=== PATIENT | female | born 1945 | race Caucasian/White ===

== ENCOUNTER 2016-11-22 15:34 | Emergency (ER) | payer MEDICARE, BC ==
[2016-11-22] MEDS ORDERED: Hydromorphone 1 mg/ml Ampule IV ONE ×3 (15:48→19:03)
[2016-11-22] MEDS ORDERED: BENADRYL 50 MG/ML IV ONE ×2 (15:48→16:38)
[2016-11-22] MEDS ORDERED: GI COCKTAIL 60ML (Belladonn/Phenobarb/Lidoc PO ONE (15:49)
[2016-11-22] MEDS ORDERED: BENADRYL 50 MG/ML ONE ×2 (15:53→16:39)
[2016-11-22] MEDS ORDERED: Hydromorphone 1 mg/ml Ampule ONE ×3 (15:53→18:57)
[2016-11-22] MEDS ORDERED: XYLOCAINE HCl Viscous ONE (15:54)
[2016-11-22] MEDS ORDERED: Sodium Chloride 0.9% 1000 ML 1,000 ML ONE (15:55)
[2016-11-22] MEDS ORDERED: Pepcid 20 MG VIAL IV ONE ×2 (15:55→15:56)
[2016-11-22] MEDS ORDERED: MAALOX ES 30 ML UNIT DOSE ONE (15:55)
--- NOTE | 2016-11-22 15:55 | ERPHSYRPT ---
- History of Present Illness Time Seen by Provider: 11/22/16 15:35 Source: patient, family (daughter) Patient Subjective Stated Complaint: PT STATES SHE RECENTLY STARTED RADIATION STATED THAT SHE WAS OUT PULLING WEEDS WHEN SHE BEGAN HAVING SOME. EPIGASTRIC PAIN STATES THAT THE DR TOLD HER SHE WOULD HAVE SOME PAIN FROM [facility] "BUT I DIDN'T THINK. IT WOULD HURT THIS BAD" DENIES EVIE. Triage Nursing Assessment: PT ALERT WARM AND DRY RESP EASY NON LABORED ABDOMEN SOFT NON TENDER ON PALPATION Physician History: CC: chest pain, pain with swallowing Hx: 71 y/o patient of CARRILL[facility] Shaikh and Dr Mcclendon rad onc. She has stage 3 lung CA on intensive XRT and chemotherapy. She completed 5 XRT treatments today. She takes norco for pain. She now has pain that is severe, worse with swallowing. Can not even eat or drink to the pain. No fever or chills. No cough or shortness of breath. No real abd pain. She has hx of heart disease and stenting. Severity: severe Allergies/Adverse Reactions: prochlorperazine [From Compazine] Allergy (Verified 11/22/16 15:37) CONTRAST DYE Allergy (Uncoded 11/22/16 15:55) Home Medications: Amitriptyline HCl 50 mg PO 11/22/16 [History] Aspirin 325 mg PO 11/22/16 [History] Carvedilol 6.25 mg [Coreg 6.25 MG] 6.25 mg PO BID 11/22/16 [History] Clopidogrel Bisulfate [Plavix] 75 mg PO DAILY 11/22/16 [History] Donepezil HCl 10 mg PO DAILY 11/22/16 [History] Insulin Glargine [Lantus Insulin] 11/22/16 [History] Levothyroxine Sodium 80 mcg 11/22/16 [History] Metformin HCl 500 mg PO TID 11/22/16 [History] Ideal-3 Fatty Acids/Fish Oil [Fish Oil 1,000 mg Capsule] 11/22/16 [History ] Paroxetine HCl 20 mg PO 11/22/16 [History] Pravastatin Sodium 40 mg PO DAILY 11/22/16 [History] Zolpidem Tartrate 10 mg PO 11/22/16 [History] Hx Tetanus, Diphtheria Vaccination/Date Given: No Hx Influenza Vaccination/Date Given: No Hx Pneumococcal Vaccination/Date Given: No Immunizations Up to Date: Yes - Review of Systems Constitutional: No Fever, No Chills Eyes: No Symptoms Ears, Nose, & Throat: No Symptoms Respiratory: No Cough, No Dyspnea Cardiac: Chest Pain Abdominal/Gastrointestinal: No Abdominal Pain, No Nausea, No Vomiting, No Diarrhea Genitourinary Symptoms: No Symptoms Musculoskeletal: No Symptoms Skin: No Symptoms All Other Systems: Reviewed and Negative - Past Medical History Pertinent Past Medical History: Yes Other Medical History: DIABETIC,HTN,HIGH CHOLESTEROL,VT,STAGE 3 LUNG CANCER - Past Surgical History Past Surgical History: Yes Other Surgical History: PORT PLACEMENT - Social History Smoking Status: Former smoker Exposure to second hand smoke: No Drug Use: none Patient Lives Alone: No - Female History Hx Last Menstrual Period: N/A - Nursing Vital Signs Nursing Vital Signs: Initial Vital Signs Temperature 98.7 F Temperature Source Oral Pulse Rate 100 Respiratory Rate 20 Blood Pressure [] 140/67 Pain Intensity 8 - Physical Exam General Appearance: alert Eye Exam: PERRL/EOMI Ears, Nose, Throat Exam: normal ENT inspection, moist mucous membranes Neck Exam: normal inspection, non-tender, supple Respiratory Exam: normal breath sounds, lungs clear Cardiovascular Exam: regular rate/rhythm Gastrointestinal/Abdomen Exam: soft, No tenderness, No distention, No mass, No guarding Back Exam: normal inspection Extremity Exam: normal inspection, normal range of motion Neurologic Exam: alert, oriented x 3, cooperative, sensation nml, No motor deficits Skin Exam: warm, dry, No rash SpO2 Interpretation: normal SpO2: 96 Oxygen Delivery: Room Air - Course Nursing assessment & vital signs reviewed: Yes EKG Interpreted by Me: RATE (86), Sinus Rhythm, NORMAL AXIS, NORMAL INTERVALS ( QTc 428), NORMAL QRS, NORMAL ST-T - Radiology Exams cxr X-ray Interpretation: Reviewed by me (ectactic aorta, no acute) Ordered Tests: Active Orders 24 hr Category Date Time Status EKG-ER Only STAT Care 11/22/16 15:48 Active IV Insertion STAT Care 11/22/16 15:48 Active CHEST 2 VIEWS (PA AND LAT) Stat Exams 11/22/16 15:48 Taken CBC W DIFF Stat Lab 11/22/16 15:45 Completed CMP Stat Lab 11/22/16 15:45 Completed LIPASE Stat Lab 11/22/16 15:45 Completed TROPONIN Stat Lab 11/22/16 15:45 Completed Medication Summary Generic Name Dose Route Start Last Admin Trade Name Eden PRN Reason Stop Dose Admin Sodium Chloride 1,000 mls @ 250 mls/hr 11/22/16 16:00 11/22/16 16:03 Sodium Chloride 0.9% 1000 Ml IV 12/22/16 15:59 250 mls/hr .Q4H MATEO Administration Discontinued Medications Generic Name Dose Route Start Last Admin Trade Name Eden PRN Reason Stop Dose Admin Al Hydrox/Mg Hydrox/Simethicone Confirm 11/22/16 15:55 Maalox Es 30 Ml Unit Dose Administered 11/22/16 15:56 Dose 30 ml .ROUTE .STK-MED ONE Belladonna Alkaloids/Phenobarbital 60 ml 11/22/16 15:49 11/22/16 16:02 Gi Cocktail 60ml (Belladonn/Phenobarb/Lidoc* PO 11/22/16 15:50 60 ml STAT ONE Administration Belladonna Alkaloids/Phenobarbital Confirm 11/22/16 15:56 Donnatol Liquid Administered 11/22/16 15:57 Dose 64.8 mg .ROUTE .STK-MED ONE Diphenhydramine HCl 25 mg 11/22/16 15:48 11/22/16 16:02 Benadryl 50 Mg/Ml IV 11/22/16 15:49 25 mg STAT ONE Administration Diphenhydramine HCl Confirm 11/22/16 15:53 Benadryl 50 Mg/Ml Administered 11/22/16 15:54 Dose 50 mg .ROUTE .STK-MED ONE Diphenhydramine HCl 25 mg 11/22/16 16:38 11/22/16 16:44 Benadryl 50 Mg/Ml IV 11/22/16 16:39 25 mg STAT ONE Administration Diphenhydramine HCl Confirm 11/22/16 16:39 Benadryl 50 Mg/Ml Administered 11/22/16 16:40 Dose 50 mg .ROUTE .STK-MED ONE Famotidine 20 mg 11/22/16 15:55 11/22/16 16:03 Pepcid 20 Mg Vial IV 11/22/16 15:56 20 mg STAT ONE Administration Famotidine Confirm 11/22/16 15:56 Pepcid 20 Mg Vial Administered 11/22/16 15:57 Dose 20 mg IV .STK-MED ONE Hydromorphone HCl 1 mg 11/22/16 15:48 11/22/16 16:02 Hydromorphone 1 Mg/Ml Ampule IV 11/22/16 15:49 1 mg STAT ONE Administration Hydromorphone HCl Confirm 11/22/16 15:53 Hydromorphone 1 Mg/Ml Ampule Administered 11/22/16 15:54 Dose 1 mg .ROUTE .STK-MED ONE Hydromorphone HCl 1 mg 11/22/16 16:38 11/22/16 16:44 Hydromorphone 1 Mg/Ml Ampule IV 11/22/16 16:39 1 mg STAT ONE Administration Hydromorphone HCl Confirm 11/22/16 16:39 Hydromorphone 1 Mg/Ml Ampule Administered 11/22/16 16:40 Dose 1 mg .ROUTE .STK-MED ONE Hydromorphone HCl Confirm 11/22/16 18:57 Hydromorphone 1 Mg/Ml Ampule Administered 11/22/16 18:58 Dose 1 mg .ROUTE .STK-MED ONE Hydromorphone HCl 1 mg 11/22/16 19:03 11/22/16 19:04 Hydromorphone 1 Mg/Ml Ampule IV 11/22/16 19:04 1 mg STAT ONE Administration Lidocaine HCl Confirm 11/22/16 15:54 Xylocaine Hcl Viscous * Administered 11/22/16 15:55 Dose 20 ml .ROUTE .STK-MED ONE Lab/Rad Data: Laboratory Result Diagrams 11/22/16 15:45 11/22/16 15:45 Laboratory Results 11/22/16 11/22/16 Range/Units 15:45 15:45 WBC 3.9 L (4.0-10.5) K/mm3 RBC 4.34 (4.1-5.4) M/mm3 Hgb 12.3 (12.0-16.0) gm/dl Hct 37.1 (35-47) % MCV 85.5 (78-100) fl MCH 28.3 (26-32) pg MCHC 33.2 (32-36) g/dl RDW 13.6 (11.5-14.0) % Plt Count 347 (150-450) K/mm3 MPV 9.4 (6-9.5) fl Gran % 57.6 (36.0-66.0) % Lymphocytes % 36.8 (24.0-44.0) % Monocytes % 3.3 (0.0-12.0) % Eosinophils % 1.8 (0.00-5.0) % Basophils % 0.5 (0.0-0.4) % Basophils # 0.02 (0-0.4) Sodium 136 (136-145) mEq/L Potassium 4.6 (3.5-5.1) mEq/L Chloride 101 (98-107) mEq/L Carbon Dioxide 27.9 (21-32) mEq/L Anion Gap 12.1 (5-15) MEQ/L BUN 15 (9-20) mg/dL Creatinine 0.93 (0.55-1.30) mg/dl Estimated GFR > 60 ML/MIN Glucose 149 H (70-110) MG/DL Calcium 8.9 (8.5-10.1) mg/dL Total Bilirubin 0.20 (0.2-1.0) mg/dL AST 11 L (15-37) U/L ALT 36 (12-78) U/L Alkaline Phosphatase 118 H (46-116) U/L Troponin I < 0.017 (0.000-0.056) ng/ml Serum Total Protein 6.5 (6.4-8.2) gm/dL Albumin 3.6 (3.4-5.0) g/dL Lipase 267 (73-393) U/L - Progress Progress Note: 11/22/16 19:[address] Mojica for Dr Mcclendon. He advised okay to try liquid oral pain meds with duragesic patch at home or admit for IVF and pain control and possible feeding tube if unable to swallow. Pt initially wanted to go home but pain has worsened and she has trouble swallowing. Explained to pt and family can not rule out cardiac or aortic cause but this appears to be esophageal. She decided for transfer to [facility] as she sees Kiran Leach, Dr Mcclendon, and Dr Aggarwal. Paged transfer center. 11/22/16 19:[address] Valerio [facility] attending and he accepts transfer to [facility]. Counseled pt/family regarding: lab results, diagnosis, need for follow-up, rad results - Departure Time of Disposition: 19:31 Departure Disposition: Transfer Clinical Impression: post XRT chest pain, Esophagitis, stage 3 lung cancer, Dysphagia, Odynophagia Condition: Fair Critical Care Time: No Referrals: TARIK SHAIKH [Primary Care Provider] -
[2016-11-22] MEDS ORDERED: Donnatol Liquid ONE (15:56)
[2016-11-22 15:59] LABS: BASOPHIL % 0.5 % (0.0-0.4); Eosinophil % 1.8 % (0.00-5.0); Granulocytes % 57.6 % (36.0-66.0); Lymphocytes % 36.8 % (24.0-44.0); Mean Cell Volume 85.5 fl (78-100); Mean Corpuscular Hemoglobin 28.3 pg (26-32); Mean Platelet Volume 9.4 fl (6-9.5); Monocytes % 3.3 % (0.0-12.0); Platelet Count 347 K/mm3 (150-450); Red Blood Count 4.34 M/mm3 (4.1-5.4); Red Cell Distribution Width 13.6 % (11.5-14.0); White Blood Count 3.9 K/mm3 (4.0-10.5)
[2016-11-22] MEDS ORDERED: Sodium Chloride 0.9% 1000 ML 1,000 ML IV SCH (16:00)
[2016-11-22 16:20] LABS: ALBUMIN 3.6 g/dL (3.4-5.0); ALKALINE PHOSPHATASE 118 U/L (46-116); ANION GAP 12.1 MEQ/L (5-15); BLOOD UREA NITROGEN 15 mg/dL (9-20); CHLORIDE 101 mEq/L (98-107); Carbon Dioxide 27.9 mEq/L (21-32); Glucose 149 MG/DL (70-110); LIPASE 267 U/L (73-393); Potassium 4.6 mEq/L (3.5-5.1); SGOT/AST 11 U/L (15-37); SGPT/ALT 36 U/L (12-78); SODIUM 136 mEq/L (136-145); Total Protein 6.5 gm/dL (6.4-8.2)
[2016-11-22 16:23] LABS: TROPONIN < 0.017 ng/ml (0.000-0.056)
--- NOTE | 2016-11-22 20:19 | XRAY ---
Indication: Chest pain. Lung cancer. Comparison: None PA/lateral chest demonstrates 2 cm medial right upper lobe nodule. Elsewhere a few scattered calcified granulomas and right-sided Port-A-Cath. No focal infiltrate, consolidation, or large effusion. Heart is not enlarged. Vascularity normal. Bony thorax intact with mild osteopenia and lower cervical fusion surgery. Impression: Right upper lobe nodule that should be compared to previous outside studies if available. Evidence for old granulomatous disease. Negative for acute pneumonic process or CHF.
[2016-11-22 21:48] VITALS: BP 124/80; PULSE 89; O2SAT 95
== END 2016-11-22 21:25 | disposition short-term general hospital (02) ==
LOC: ED 15:34
DX: R07.89 Other chest pain (principal); Z92.3 Personal history of irradiation; K20.9 Esophagitis, unspecified; C34.90 Malignant neoplasm of unspecified part of unspecified bronchus or lung; R13.10 Dysphagia, unspecified; Z79.899 Other long term (current) drug therapy; Z79.84 Long term (current) use of oral hypoglycemic drugs; Z79.4 Long term (current) use of insulin; E11.9 Type 2 diabetes mellitus without complications; I10 Essential (primary) hypertension; E78.00 Pure hypercholesterolemia, unspecified
CPT/HCPCS: 36000; 36415; 71020; 80053; 83690; 84484; 85025; 93005; 96360; 96361; 96374; 96375; 96376; 99285; J1170; J1200; A9270-GY

== ENCOUNTER 2017-01-18 15:40 | Observation (INO) | payer MEDICARE, BC ==
[2017-01-18] MEDS ORDERED: DUONEB 0.5-3 MG/3 ml Neb IH ONE ×2 (15:56→16:18)
--- NOTE | 2017-01-18 16:03 | ERPHSYRPT ---
- History of Present Illness Time Seen by Provider: 01/18/17 15:51 Source: patient Exam Limitations: no limitations Physician History: 71-year-old white female with history of stage III lung cancer has been undergoing chemotherapy and radiation therapy arrives with complaint of a cough nonproductive lasting 3 days. Patient states she is feels like she is wheezing she feels like she is not improving after albuterol treatments at home. Past medical history includes diabetes, high blood pressure, hypercholesterolemia, myocardial infarction, stage III lung cancer Past surgical history includes port placement Social history patient is a former smoker Timing/Duration: day(s) (3 days) Activities at Onset: none Severity of Dyspnea-Max: moderate Severity of Dyspnea-Current: moderate Possible Cause: occasional episodes Modifying Factors: Improves With: nothing Associated Symptoms: constant, cough, fever (patient states she felt hot several days ago but did not take her temperature), wheezing, No intermittent, No anxiety, No chest pain/discomfort, No edema, No insomnia, No loss of appetite , No lightheadedness, No weakness, No ankle swelling, No chills, No hemoptysis, No calf pain, No dizziness, No heaviness, No heart racing, No muscle spasms feet , No muscle spasms hands, No painful breathing, No productive cough, No sweating , No tightness, No tingling face International travel in last 2 weeks: No Allergies/Adverse Reactions: prochlorperazine [From Compazine] Allergy (Verified 11/22/16 15:37) CONTRAST DYE Allergy (Uncoded 11/22/16 15:55) Home Medications: Amitriptyline HCl 50 mg PO 11/22/16 [History] Aspirin 325 mg PO 11/22/16 [History] Carvedilol 6.25 mg [Coreg 6.25 MG] 6.25 mg PO BID 11/22/16 [History] Clopidogrel Bisulfate [Plavix] 75 mg PO DAILY 11/22/16 [History] Donepezil HCl 10 mg PO DAILY 11/22/16 [History] Insulin Glargine [Lantus Insulin] 11/22/16 [History] Levothyroxine Sodium 80 mcg 11/22/16 [History] Metformin HCl 500 mg PO TID 11/22/16 [History] [place]iergate-3 Fatty Acids/Fish Oil [Fish Oil 1,000 mg Capsule] 11/22/16 [History ] Paroxetine HCl 20 mg PO 11/22/16 [History] Pravastatin Sodium 40 mg PO DAILY 11/22/16 [History] Zolpidem Tartrate 10 mg PO 11/22/16 [History] Hx Tetanus, Diphtheria Vaccination/Date Given: No Hx Influenza Vaccination/Date Given: No Hx Pneumococcal Vaccination/Date Given: No - Review of Systems Constitutional: Fever (felt hot several days ago did not take her temperature), No Chills, No Fatigue, No Lethargy, No Malaise, No Night Sweats, No Weakness, No Weight Loss Eyes: No Symptoms Ears, Nose, & Throat: No Symptoms, No Ear Pain, No Ear Discharge, No Hearing Changes, No Tinnitus, No Nose Pain, No Nose Congestion, No Nose Discharge, No Sinus Drainage, No Epistaxis, No Mouth Pain, No Mouth Swelling, No Loose Teeth, No Throat Pain, No Throat Swelling, No Hoarse, No Painful Swallowing, No Snoring , No Stridor Respiratory: Cough, Dyspnea, Wheezing, No Cyanosis, No Dyspnea on Exertion (MCNAMARA) , No Stridor Cardiac: No Chest Pain, No Edema, No Syncope Abdominal/Gastrointestinal: No Abdominal Pain, No Nausea, No Vomiting, No Diarrhea Genitourinary Symptoms: No Dysuria Musculoskeletal: No Back Pain, No Neck Pain Skin: No Rash Neurological: No Dizziness, No Focal Weakness, No Sensory Changes Psychological: No Symptoms Endocrine: No Symptoms All Other Systems: Reviewed and Negative - Past Medical History Pertinent Past Medical History: Yes Other Medical History: DIABETIC,HTN,HIGH CHOLESTEROL,OH,STAGE 3 LUNG CANCER - Past Surgical History Past Surgical History: Yes Other Surgical History: PORT PLACEMENT - Social History Smoking Status: Former smoker Exposure to second hand smoke: No Drug Use: none Patient Lives Alone: No - Nursing Vital Signs Nursing Vital Signs: Initial Vital Signs Temperature 98.1 F 01/18/17 15:41 Pulse Rate 91 H 01/18/17 15:41 Respiratory Rate 18 01/18/17 15:41 Blood Pressure 102/67 01/18/17 15:41 O2 Sat by Pulse Oximetry 97 01/18/17 15:41 Pain Scale Pain Intensity 8 - Physical Exam General Appearance: mild distress Eye Exam: PERRL/EOMI, eyes nml inspection, No scleral icterus, No pale conjunctivae, No photophobia, No post op pupil defect (L), No post op pupil defect (R), No EOM palsy/anisocoria Ears, Nose, Throat Exam: hearing grossly normal, normal ENT inspection, normal pharynx, No abnormal TM (R), No abnormal TM (L), No sinus pain/drainage, No hearing decreased, No nasal congestion, No pharyngeal erythema, No tonsillar swelling Neck Exam: normal inspection, supple Respiratory Exam: rhonchi (bilateral rhonchi), wheezing (bilateral wheezing) Cardiovascular/Chest Exam: normal heart sounds, regular rate/rhythm Abdominal/Gastrointestinal Exam: soft, No tenderness, No distention, No mass Extremity Exam: non-tender, normal range of motion, normal inspection, no calf tenderness, no pedal edema Peripheral Pulses Exam: dorsalis-pedis (R): 2+, dorsalis-pedis (L): 2+ Neurologic Exam: alert, oriented x 3, cooperative, 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 II-XII nml as tested, sensation nml, No motor deficits Skin Exam: normal color, warm, No dry SpO2 Interpretation: normal (96%) - Course Nursing assessment & vital signs reviewed: Yes EKG Interpreted by Me: RATE (87 bpm), Sinus Rhythm, NORMAL AXIS, Other (EKG, sinus rhythm 87 bpm normal axis no T wave changes noted essentially normal ekg) Ordered Tests: Active Orders 24 hr Category Date Time Status Animal Pathologist STAT Care 01/18/17 15:57 Active EKG-ER Only STAT Care 01/18/17 15:56 Active IV Insertion STAT Care 01/18/17 15:56 Active CHEST 1 VIEW (PORTABLE) Stat Exams 01/18/17 15:57 Taken BLOOD CULTURE Stat Lab 01/18/17 16:10 Received CBC W DIFF Stat Lab 01/18/17 16:05 Completed CMP Stat Lab 01/18/17 16:05 Completed CULTURE,SPUTUM Stat Lab 01/18/17 15:57 Uncollected Manual Differential NC Stat Lab 01/18/17 16:05 Completed NT PRO BNP Stat Lab 01/18/17 16:05 Completed VENOUS BLOOD GAS Stat Lab 01/18/17 15:56 Completed Respiratory Nebulizer STAT RT 01/18/17 15:58 Completed Medication Summary Discontinued Medications Generic Name Dose Route Start Last Admin Trade Name Freq PRN Reason Stop Dose Admin Albuterol/Ipratropium 3 ml 01/18/17 15:56 01/18/17 16:20 Duoneb 0.5-3 Mg/3 Ml Neb IH 01/18/17 15:57 3 ml STAT ONE Administration Albuterol/Ipratropium Confirm 01/18/17 16:18 Duoneb 0.5-3 Mg/3 Ml Neb Administered 01/18/17 16:19 Dose 3 ml IH .STK-MED ONE Ceftriaxone Sodium/Dextrose 1 g in 50 mls @ 100 mls/hr 01/18/17 17:01 17:22 Rocephin 1 Gm-D5w 50 Ml Bag IV 01/18/17 17:30 100 mls/hr STAT STA Administration Ceftriaxone Sodium/Dextrose Confirm 01/18/17 17:20 Rocephin 1 Gm-D5w 50 Ml Bag Administered 01/18/17 17:21 Dose 1 g in 50 mls @ ud IV .STK-MED ONE Methylprednisolone Sodium Succinate 125 mg 01/18/17 17:00 01/18/17 17:22 Solu-Medrol 125 Mg IV 01/18/17 17:01 125 mg STAT ONE Administration Methylprednisolone Sodium Succinate Confirm 01/18/17 17:20 Solu-Medrol 125 Mg Administered 01/18/17 17:21 Dose 125 mg .ROUTE .STK-MED ONE Lab/Rad Data: Laboratory Result Diagrams 01/18/17 16:05 01/18/17 16:05 Laboratory Results 01/18/17 01/18/17 01/18/17 Range/Units 16:05 16:05 15:56 WBC 4.1 (4.0-10.5) K/mm3 RBC 2.72 L (4.1-5.4) M/mm3 Hgb 8.1 L (12.0-16.0) gm/dl Hct 25.6 L (35-47) % MCV 94.1 (78-100) fl MCH 29.7 (26-32) pg MCHC 31.6 L (32-36) g/dl RDW 21.3 H (11.5-14.0) % Plt Count 169 (150-450) K/mm3 MPV 8.4 (6-9.5) fl Segmented Neutrophils 60 (36.0-66.0) % Band Neutrophils 11 H (0.0-2.0) % Lymphocytes (Manual) 27 (24-44) % Monocytes (Manual) 2 (0.0-12.0) % Differential Comment NORMAL Platelet Estimate NORMAL (NORMAL) VBG pH 7.39 (7.32-7.42) VBG pCO2 at Pat Temp 44 (42-55) mm/Hg VBG pO2 at Pat Temp 29 (25-40) mm/Hg VBG HCO3 26.6 (22-28) meq/L VBG O2 Sat (Judy) 54.0 L (95-100) VBG Base Excess 1.4 (-2.0-2.0) VBG Hemoglobin 8.6 VBG Carboxyhemoglobin 2.0 (0.0-6.9) % T HGB POC Potassium 4.4 (3.5-5.1) Sodium 142 (136-145) mEq/L Potassium 4.2 (3.5-5.1) mEq/L Chloride 106 (98-107) mEq/L Carbon Dioxide 23.5 (21-32) mEq/L Anion Gap 16.2 H (5-15) MEQ/L BUN 9 (9-20) mg/dL Creatinine 1.00 (0.55-1.30) mg/dl Estimated GFR 58 ML/MIN Glucose 179 H (70-110) MG/DL Calcium 8.6 (8.5-10.1) mg/dL Total Bilirubin 0.30 (0.2-1.0) mg/dL AST 13 L (15-37) U/L ALT 19 (12-78) U/L Alkaline Phosphatase 131 H (46-116) U/L NT-Pro-B Natriuret Pep 186 H (0-125) pg/ml Serum Total Protein 5.7 L (6.4-8.2) gm/dL Albumin 3.2 L (3.4-5.0) g/dL - Progress Progress: improved Air Movement: fair Progress Note: 01/18/17 18:01 71-year-old white female with history of stage III lung cancer arrives with complaint of a cough congestion wheezing symptoms for 3 days. Patient with bilateral wheezing patient has what appears to be a infiltrate in the left lower lung. Patient states she [facility] not [facility] to [facility] she wants to stay here patient has been given DuoNeb treatment albuterol Rocephin. Will discuss the case with Dr. León who is project control manager for hospitalist in this hospital. 01/18/17 18:27 Patient feeling somewhat better however a few wheezes after DuoNeb and Solu- Medrol. Patient has been cultured up. Patient's BNP is mildly elevated. Chest x-ray shows a left lower lobe infiltrate. Patient states she does not want to be transferred to [facility] where her family doctor is but would rather stay here. Case is discussed with Dr. León Will admit for pneumonia and bronchospasm - Departure Time of Disposition: 18:29 Departure Disposition: Observation Clinical Impression: Bronchospasm Pneumonia Qualifiers: Pneumonia type: due to unspecified organism Laterality: left Lung location: lower lobe of lung Qualified Code(s): J18.1 - Lobar pneumonia, unspecified organism Condition: Fair Critical Care Time: No
[2017-01-18 16:10] LABS: VBG BASE EXCESS 1.4 (-2.0-2.0); VBG HCO3- 26.6 meq/L (22-28); VBG HEMOGLOBIN 8.6; VBG POTASSIUM 4.4 (3.5-5.1); VBG pH 7.39 (7.32-7.42)
[2017-01-18 16:17] LABS: Mean Cell Volume 94.1 fl (78-100); Mean Platelet Volume 8.4 fl (6-9.5); Platelet Count 169 K/mm3 (150-450); Red Blood Count 2.72 M/mm3 (4.1-5.4); Red Cell Distribution Width 21.3 % (11.5-14.0); White Blood Count 4.1 K/mm3 (4.0-10.5)
[2017-01-18 16:24] LABS: Mean Corpuscular Hemoglobin 29.7 pg (26-32)
[2017-01-18 16:43] LABS: ALBUMIN 3.2 g/dL (3.4-5.0); ANION GAP 16.2 MEQ/L (5-15); BILIRUBIN,TOTAL 0.3 mg/dL (0.2-1.0); Carbon Dioxide 23.5 mEq/L (21-32); Potassium 4.2 mEq/L (3.5-5.1); Total Protein 5.7 gm/dL (6.4-8.2)
[2017-01-18 16:53] LABS: BAND 11 % (0.0-2.0); Platelet Estimate NORMAL (NORMAL); Total Cells Counted 100
[2017-01-18] MEDS ORDERED: solu-MEDROL 125 MG IV ONE (17:00)
[2017-01-18] MEDS ORDERED: ROCEPHIN 1 Gm-D5w 50 ml Bag** 1 G/50 ML IVPB IV STA (17:01)
[2017-01-18] MEDS ORDERED: solu-MEDROL 125 MG ONE (17:20)
[2017-01-18] MEDS ORDERED: ROCEPHIN 1 Gm-D5w 50 ml Bag** 1 G/50 ML IVPB IV ONE (17:20)
[2017-01-18] MEDS ORDERED: DUONEB 0.5-3 MG/3 ml Neb IH PRN (19:03)
--- NOTE | 2017-01-18 20:02 | XRAY ---
Indication: Fever and cough. Comparison: November 22, 2016. Portable chest demonstrates new right costophrenic angle and lesser degree left base infiltrates/atelectasis. Again scattered calcified granulomas. Heart is not enlarged. Stable right-sided Port-A-Cath and lower cervical fusion surgery. Bony thorax intact. Impression: New bibasilar infiltrates/atelectasis. Correlate clinically.
[2017-01-18] MEDS: solu-MEDROL 125 MG IV SCH (22:14)
[2017-01-18] MEDS: Sodium Chloride 0.9% 1000 ML 1,000 ML IV SCH (22:44)
[2017-01-19] MEDS ORDERED: Ambien 10 MG ONE (00:01)
[2017-01-19] MEDS ORDERED: NORCO 7.5/325 MG TAB ONE (00:14)
[2017-01-19] MEDS ORDERED: NORCO 7.5/325 MG TAB PO PRN (00:20)
[2017-01-19] MEDS ORDERED: Ambien 10 MG PO PRN (00:20)
[2017-01-19] MEDS ORDERED: ZOFRAN ODT 4 MG PO PRN (00:21)
[2017-01-19] MEDS ORDERED: Ativan 1 MG PO PRN (00:22)
[2017-01-19] MEDS: solu-MEDROL 125 MG IV SCH ×2 (00:33→06:28)
[2017-01-19 06:31] LABS: Mean Cell Volume 92.8 fl (78-100); Mean Corpuscular Hemoglobin 29.7 pg (26-32); Mean Platelet Volume 9.2 fl (6-9.5); Platelet Count 189 K/mm3 (150-450); Red Blood Count 2.76 M/mm3 (4.1-5.4); Red Cell Distribution Width 20.8 % (11.5-14.0); White Blood Count 4.8 K/mm3 (4.0-10.5)
[2017-01-19] MEDS: NORCO 7.5/325 MG TAB PO PRN ×2 (06:47→13:45)
[2017-01-19 07:02] LABS: ALBUMIN 3.2 g/dL (3.4-5.0); ALKALINE PHOSPHATASE 127 U/L (46-116); ANION GAP 13.5 MEQ/L (5-15); BLOOD UREA NITROGEN 9 mg/dL (9-20); CHLORIDE 106 mEq/L (98-107); Carbon Dioxide 25.8 mEq/L (21-32); Glucose 276 MG/DL (70-110); Potassium 4.2 mEq/L (3.5-5.1); SGOT/AST 11 U/L (15-37); SGPT/ALT 20 U/L (12-78); SODIUM 141 mEq/L (136-145); Total Protein 6.1 gm/dL (6.4-8.2)
[2017-01-19] MEDS: DUONEB 0.5-3 MG/3 ml Neb IH SCH ×3 (07:50→15:12)
[2017-01-19] MEDS: NovoLOG Insulin SQ PRN ×2 (08:08→12:04)
[2017-01-19 08:18] LABS: Total Cells Counted 100
[2017-01-19 08:19] LABS: Platelet Estimate NORMAL (NORMAL)
--- NOTE | 2017-01-19 08:32 | XRAY ---
Indication: Follow-up pneumonia. Comparison: One day earlier. PA/lateral chest demonstrates clearing of the previous bibasilar infiltrates/atelectasis with the lungs now clear. Heart within normal limits with again right-sided Port-A-Cath. No new/acute findings.
[2017-01-19] MEDS ORDERED: Zithromax 500 MG/ 250 ML NaCl Premix 500 MG/250 ML IVPB IV SCH ×2 (10:00→22:00)
[2017-01-19] MEDS ORDERED: ROCEPHIN 1 Gm-D5w 50 ml Bag** 1 G/50 ML IVPB IV SCH (10:00)
[2017-01-19] MEDS: Sodium Chloride 0.9% 1000 ML 1,000 ML IV SCH (10:44)
[2017-01-19 11:58] VITALS: BP 138/75
[2017-01-19] MEDS ORDERED: solu-MEDROL 125 MG IV SCH (12:00)
--- NOTE | 2017-01-19 13:02 | PCM.HP ---
History of Present Illness - Chief Complaint Chief Complaint: c/o shortness of breath for 2-3 days History of Present Illness: is a 71-year-old white female with history of stage III lung cancer has been undergoing chemotherapy and radiation therapy arrives with complaint of a cough nonproductive lasting 3 days. Patient states she is feels like she is wheezing she feels like she is not improving after albuterol treatments at home. Past medical history includes diabetes, high blood pressure, hypercholesterolemia, myocardial infarction, stage III lung cancer Past surgical history includes port placement Social history patient is a former smoker Timing/Duration: day(s) (3 days) Activities at Onset: none Severity of Dyspnea-Max: moderate Severity of Dyspnea-Current: moderate Possible Cause: occasional episodes - Review of Systems Constitutional: Fever, No Chills Eyes: No Symptoms Ears, Nose, & Throat: No Symptoms Respiratory: Cough, Short Of Breath, Wheezing Cardiac: No Chest Pain, No Edema, No Syncope Abdominal/Gastrointestinal: No Abdominal Pain, No Nausea, No Vomiting, No Diarrhea Genitourinary Symptoms: No Dysuria Musculoskeletal: No Back Pain, No Neck Pain Skin: No Rash Neurological: No Dizziness, No Focal Weakness, No Sensory Changes Psychological: No Symptoms Endocrine: No Symptoms Hematologic/Lymphatic: No Symptoms Immunological/Allergic: No Symptoms Medications & Allergies Home Medications: Home Medication List Amitriptyline HCl 50 mg PO HS 11/22/16 [History Confirmed 01/19/17] Aspirin 325 mg PO DAILY 11/22/16 [History Confirmed 01/19/17] Clopidogrel Bisulfate [Plavix] 75 mg PO DAILY 11/22/16 [History Confirmed ] Donepezil HCl 10 mg PO DAILY 11/22/16 [History Confirmed 01/19/17] Levothyroxine Sodium 25 mcg PO DAILY 11/22/16 [History Confirmed 01/19/17] Metformin HCl 500 mg PO BID 11/22/16 [History Confirmed 01/18/17] Paroxetine HCl 30 mg PO DAILY 11/22/16 [History Confirmed 01/19/17] Pravastatin Sodium 80 mg PO DAILY 11/22/16 [History Confirmed 01/19/17] Zolpidem Tartrate 10 mg PO HS 11/22/16 [History Confirmed 01/18/17] Carvedilol 12.5 mg [Coreg 12.5 mg] 12.5 mg PO BID 01/18/17 [History Confirmed 01/18/17] Clonazepam 0.5 mg [Klonopin 0.5 MG] 0.5 mg PO BID 01/18/17 [History Confirmed 01/19/17] Dexamethasone 4 mg PO UD 01/18/17 [History Confirmed 01/19/17] Insulin Glargine,Hum.rec.anlog [Basaglar Kwikpen U-100] 23 unit SQ HS 01/18/17 [ History Confirmed 01/19/17] Insulin Lispro [Humalog Kwikpen] 0 unit SQ BID PRN MDD 20 01/18/17 [History Confirmed 01/19/17] Levocetirizine Dihydrochloride [Xyzal] 5 mg PO HS 01/18/17 [History Confirmed ] Omeprazole 20 MG [Prilosec 20 mg] 20 mg PO DAILY 01/18/17 [History Confirmed 02/24] Ondansetron [Ondansetron Odt] 4 mg PO Q6HPRN PRN 01/18/17 [History Confirmed 03/27] Promethazine HCl 25 mg [Phenergan 25 mg] 25 mg PO Q8H PRN PRN 01/18/17 [ History Confirmed 01/18/17] Albuterol 2.5 mg/3 ml Neb [Proventil 2.5 mg/3 ml Neb] 2.5 mg IH QIDPRN PRN 01/19/17 [History Confirmed 01/19/17] Albuterol Sulfate [Proventil Hfa] 6.7 gm IH QIDPRN PRN 01/19/17 [History Confirmed 01/19/17] Hydrocodone Bit/Acetaminophen [[place] 5/325Mg] 2 each PO Q4HPRN PRN 01/19/17 [ History Confirmed 01/19/17] Non-Formulary Drug [Non-Formulary Item] 15 ml PO QIDPRN PRN 01/19/17 [History Confirmed 01/19/17] Allergies/Adverse Reactions: Allergies Allergy/AdvReac Type Severity Reaction Status Date / Time prochlorperazine Allergy Rash Verified 01/19/17 09:13 [From Compazine] codeine AdvReac Nausea and Verified 01/19/17 09:14 Vomiting morphine AdvReac Nausea and Verified 01/19/17 09:13 Vomiting CONTRAST DYE Allergy Difficulty Uncoded 01/19/17 09:14 Swallowing - Past Medical History Past Medical History: Yes Neurological History: No Pertinent History ENT History: No Pertinent History Cardiac History: Angina, Coronary Artery Disease, Myocardial Infarction (ID) Respiratory History: COPD, Pneumonia Endocrine Medical History: Diabetes Type II Musculoskelatal History: Osteoarthritis GI Medical History: No Pertinent History History: No Pertinent History Pyscho-Social History: Anxiety Reproductive Disorders: No Pertinent History Comment: DIABETIC,HTN,HIGH CHOLESTEROL,ID,STAGE 3 LUNG CANCER - Past Surgical History Past Surgical History: Yes Neuro Surgical History: No Pertinent History Cardiac History: No Pertinent History Respiratory Surgery: No Pertinent History GI Surgical History: Cholecystectomy Genitourinary Surgical Hx: No Pertinent History Musculskeletal Surgical Hx: No Pertinent History Female Surgical History: Hysterectomy Other Surgical History: PORT PLACEMENT - Social History Smoking Status: Former smoker Exposure to second hand smoke: No Alcohol: None Drug Use: none - Physical Exam Vital Signs: Vital Signs - 24 hr Temp Pulse Resp BP Pulse Ox 01/19/17 12:00 16 01/19/17 11:57 97.4 F 103 H 16 138/75 96 01/19/17 11:40 100 H 20 01/19/17 08:11 98 H 22 97 01/19/17 08:00 22 01/19/17 07:19 97.4 F 94 H 16 116/57 97 01/19/17 04:00 16 01/19/17 03:59 98.3 F 100 H 18 109/54 95 01/19/17 00:41 98.5 F 84 19 131/60 97 01/19/17 00:00 19 01/18/17 23:50 98.2 F 89 15 131/58 97 01/18/17 20:25 87 17 95 01/18/17 19:03 97 01/18/17 17:50 97 H 20 126/71 94 L 01/18/17 17:21 88 18 116/67 98 01/18/17 16:28 85 22 96 01/18/17 15:41 98.1 F 91 H 16 102/67 96 Oxygen-Last 24 hours O2 Percentage 2 Liters = 28% O2 Percentage 2 Liters = 28% O2 Percentage 2 Liters = 28% O2 Percentage 2 Liters = 28% Oxygen Flowrate (L/min)-RT 2 General Appearance: no apparent distress, alert Neurologic Exam: alert, oriented x 3, cooperative, normal mood/affect, nml cerebellar function, nml station & gait, sensation nml, No motor deficits Eye Exam: PERRL/EOMI, eyes nml inspection Ears, Nose, Throat Exam: normal ENT inspection, TMs normal, pharynx normal, moist mucous membranes Neck Exam: normal inspection, non-tender, supple, full range of motion Respiratory Exam: diminished breath sounds, prolonged expirations, crackles/ rales, rhonchi, No respiratory distress Cardiovascular Exam: regular rate/rhythm, normal heart sounds, normal peripheral pulses Gastrointestinal/Abdomen Exam: soft, normal bowel sounds, No tenderness, No mass Back Exam: normal inspection, normal range of motion, No CVA tenderness, No vertebral tenderness Extremity Exam: normal inspection, normal range of motion, pelvis stable Skin Exam: normal color, warm, dry, No rash Lymphatic Exam: No adenopathy Results - Labs Lab/Micro Results: Accuchecks Date 01/19/17 Date 01/19/17 Date 01/19/17 Time 12:04 Time 08:08 Time 22:00 Accucheck Value: 291 Accucheck Value: 357 Accucheck Value: 232 Lab Results-Last 24 Hours 01/19/17 01/19/17 01/19/17 Range/Units 06:15 06:15 07:30 WBC 4.8 (4.0-10.5) K/mm3 RBC 2.76 L (4.1-5.4) M/mm3 Hgb 8.2 L (12.0-16.0) gm/dl Hct 25.6 L (35-47) % MCV 92.8 (78-100) fl MCH 29.7 (26-32) pg MCHC 32.0 (32-36) g/dl RDW 20.8 H (11.5-14.0) % Plt Count 189 (150-450) K/mm3 MPV 9.2 (6-9.5) fl Segmented Neutrophils 97 H (36.0-66.0) % Lymphocytes (Manual) 3 L (24-44) % Differential Comment NORMAL Platelet Estimate NORMAL (NORMAL) Sodium 141 (136-145) mEq/L Potassium 4.2 (3.5-5.1) mEq/L Chloride 106 (98-107) mEq/L Carbon Dioxide 25.8 (21-32) mEq/L Anion Gap 13.5 (5-15) MEQ/L BUN 9 (9-20) mg/dL Creatinine 0.79 (0.55-1.30) mg/dl Estimated GFR > 60 ML/MIN Glucose 276 H (70-110) MG/DL Hemoglobin A1c 6.9 H (4.5-6.2) Calcium 7.9 L (8.5-10.1) mg/dL Total Bilirubin 0.20 (0.2-1.0) mg/dL AST 11 L (15-37) U/L ALT 20 (12-78) U/L Alkaline Phosphatase 127 H (46-116) U/L Serum Total Protein 6.1 L (6.4-8.2) gm/dL Albumin 3.2 L (3.4-5.0) g/dL Accuchecks Date 01/19/17 Date 01/19/17 Date 01/19/17 Time 12:04 Time 08:08 Time 22:00 Accucheck Value: 291 Accucheck Value: 357 Accucheck Value: 232 - Radiology Impressions Radiology Exams & Impressions: Radiology Procedures Category Date Time Status CHEST 2 VIEWS (PA AND LAT) Routine Exams 01/19/17 06:00 Completed - Other Procedures and Tests Respiratory Therapy 01/18/17 20:00 Respiratory Nebulizer PRN 01/19/17 07:00 Respiratory Nebulizer QID Assessment/Plan (1) 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 Code(s): C34.91 - MALIGNANT NEOPLASM OF UNSP PART OF RIGHT BRONCHUS OR LUNG; C79.89 - SECONDARY MALIGNANT NEOPLASM OF OTHER SPECIFIED SITES (2) Bronchospasm Current Visit: Yes Status: Resolved Code(s): J98.01 - ACUTE BRONCHOSPASM (3) Pneumonia Current Visit: Yes Status: Acute Qualifiers: Pneumonia type: due to unspecified organism Laterality: bilateral Lung location: lower lobe of lung Qualified Code(s): J18.9 - Pneumonia, unspecified organism Assessment & Plan: Chief Complaint Diagnosis c/o shortness of breath for 2-3 days Allergies Allergy/AdvReac Type Severity Reaction Status Date / Time prochlorperazine Allergy Rash Verified 01/19/17 09:13 [From Compazine] codeine AdvReac Nausea and Verified 01/19/17 09:14 Vomiting morphine AdvReac Nausea and Verified 01/19/17 09:13 Vomiting CONTRAST DYE Allergy Difficulty Uncoded 01/19/17 09:14 Swallowing Vital Signs (Last 24 hours) Temp Pulse Resp BP Pulse Ox 01/19/17 12:00 16 01/19/17 11:57 97.4 F 103 H 16 138/75 96 01/19/17 11:40 100 H 20 01/19/17 08:11 98 H 22 97 01/19/17 08:00 22 01/19/17 07:19 97.4 F 94 H 16 116/57 97 01/19/17 04:00 16 01/19/17 03:59 98.3 F 100 H 18 109/54 95 01/19/17 00:41 98.5 F 84 19 131/60 97 01/19/17 00:00 19 01/18/17 23:50 98.2 F 89 15 131/58 97 01/18/17 20:25 87 17 95 01/18/17 19:03 97 01/18/17 17:50 97 H 20 126/71 94 L 01/18/17 17:21 88 18 116/67 98 01/18/17 16:28 85 22 96 01/18/17 15:41 98.1 F 91 H 16 102/67 96 Home Medications Medication Instructions Recorded Confirmed Last Taken Type Carvedilol 12.5 mg [Coreg 12.5 12.5 mg PO BID 01/18/17 01/18/17 01/18/17 History mg] Clonazepam 0.5 mg [Klonopin 0.5 0.5 mg PO BID 01/18/17 01/19/17 01/18/17 History MG] Dexamethasone 4 mg PO UD 01/18/17 01/19/17 Unknown History Insulin Glargine,Hum.rec.anlog 23 unit SQ HS 01/18/17 01/19/17 01/17/17 History [Basaglar Kwikpen U-100] Insulin Lispro [Humalog Kwikpen] 0 unit SQ BID PRN MDD 20 01/18/17 01/19/17 Unknown History Levocetirizine Dihydrochloride 5 mg PO HS 01/18/17 01/19/17 01/17/17 History [Xyzal] Omeprazole 20 MG [Prilosec 20 mg] 20 mg PO DAILY 01/18/17 01/18/17 01/17/17 History Ondansetron [Ondansetron Odt] 4 mg PO Q6HPRN PRN 01/18/17 01/19/17 Unknown History Promethazine HCl 25 mg 25 mg PO Q8H PRN PRN 01/18/17 01/18/17 Unknown History [Phenergan 25 mg] Albuterol 2.5 mg/3 ml Neb 2.5 mg IH QIDPRN PRN 01/19/17 01/19/17 01/18/17 History [Proventil 2.5 mg/3 ml Neb] Albuterol Sulfate [Proventil Hfa] 6.7 gm IH QIDPRN PRN 01/19/17 01/19/17 Unknown History Hydrocodone Bit/Acetaminophen 2 each PO Q4HPRN PRN 01/19/17 01/19/17 Unknown History [[place] 5/325Mg] Non-Formulary Drug [Non-Formulary 15 ml PO QIDPRN PRN 01/19/17 01/19/17 History Item] Current Medications Generic Name Dose Route Start Last Admin Trade Name Freq PRN Reason Stop Dose Admin Hydrocodone Bitart/Acetaminophen 1 tab 01/19/17 06:36 01/19/17 06:47 [place] 7.5/325 Mg Tab PO 01/24/17 06:35 1 tab Q6H PRN PRN Administration PAIN Albuterol/Ipratropium 3 ml 01/18/17 19:03 01/18/17 20:25 [place] 0.5-3 Mg/3 Ml Neb IH 02/17/17 19:02 3 ml Q4HPRN PRN Administration SHORTNESS OF BREATH/WHEEZING Albuterol/Ipratropium 3 ml 01/19/17 07:00 01/19/17 11:15 Duoneb 0.5-3 Mg/3 Ml Neb IH 02/18/17 06:59 3 ml QIDRT MATEO Administration Ceftriaxone Sodium/Dextrose 1 g in 50 mls @ 100 mls/hr 01/19/17 10:00 09:31 Rocephin 1 Gm-D5w 50 Ml Bag IV 02/18/17 09:59 100 mls/hr Q24H10 MATEO Administration Sodium Chloride 1,000 mls @ 100 mls/hr 01/18/17 19:03 01/19/17 10:44 Sodium Chloride 0.9% 1000 Ml IV 02/17/17 19:02 100 mls/hr .Q10H MATEO Administration Azithromycin 500 mg in 250 mls @ 250 mls/hr 01/19/17 22:00 Zithromax 500 Mg/ 250 Ml Nacl Premix IV 02/18/17 21:59 Q24H22 MATEO Insulin Aspart 0 unit 01/18/17 19:03 01/19/17 12:04 Novolog Insulin SQ 02/17/17 19:02 7 unit UD PRN Administration HYPERGLYCEMIA Lorazepam 1 mg 01/19/17 00:22 Ativan 1 Mg PO 02/18/17 00:21 BID PRN PRN ANXIETY Methylprednisolone Sodium Succinate 80 mg 01/19/17 12:00 01/19/17 11:20 Solu-Medrol 125 Mg IV 02/18/17 11:59 80 mg Q6HT MATEO Administration Ondansetron HCl 4 mg 01/19/17 00:21 Zofran Odt 4 Mg PO 02/18/17 00:20 Q12H PRN PRN NAUSEA/VOMITING Zolpidem Tartrate 10 mg 01/19/17 00:20 01/19/17 00:40 Ambien 10 Mg PO 02/18/17 00:19 10 mg HS PRN PRN Administration INSOMNIA Discontinued Medications Generic Name Dose Route Start Last Admin Trade Name Freq PRN Reason Stop Dose Admin Hydrocodone Bitart/Acetaminophen Confirm 01/19/17 00:14 [place] 7.5/325 Mg Tab Administered 01/19/17 00:15 Dose 1 tab .ROUTE .STK-MED ONE Hydrocodone Bitart/Acetaminophen 1 tab 01/19/17 00:20 01/19/17 00:40 [place] 7.5/325 Mg Tab PO 01/24/17 00:19 1 tab Q6H PRN Administration PAIN Albuterol/Ipratropium 3 ml 01/18/17 15:56 01/18/17 16:20 Duoneb 0.5-3 Mg/3 Ml Neb IH 01/18/17 15:57 3 ml STAT ONE Administration Albuterol/Ipratropium Confirm 01/18/17 16:18 Duoneb 0.5-3 Mg/3 Ml Neb Administered 01/18/17 16:19 Dose 3 ml IH .STK-MED ONE Ceftriaxone Sodium/Dextrose 1 g in 50 mls @ 100 mls/hr 01/18/17 17:01 17:22 Rocephin 1 Gm-D5w 50 Ml Bag IV 01/18/17 17:30 100 mls/hr STAT STA Administration Ceftriaxone Sodium/Dextrose Confirm 01/18/17 17:20 Rocephin 1 Gm-D5w 50 Ml Bag Administered 01/18/17 17:21 Dose 1 g in 50 mls @ ud IV .STK-MED ONE Azithromycin 500 mg in 250 mls @ 250 mls/hr 01/19/17 10:00 01/18/17 23:03 Zithromax 500 Mg/ 250 Ml Nacl Premix IV 02/18/17 09:59 250 mls/hr Q24H10 MATEO Administration Methylprednisolone Sodium Succinate 125 mg 01/18/17 17:00 01/18/17 17:22 Solu-Medrol 125 Mg IV 01/18/17 17:01 125 mg STAT ONE Administration Methylprednisolone Sodium Succinate Confirm 01/18/17 17:20 Solu-Medrol 125 Mg Administered 01/18/17 17:21 Dose 125 mg .ROUTE .STK-MED ONE Methylprednisolone Sodium Succinate 80 mg 01/18/17 19:03 01/19/17 06:28 Solu-Medrol 125 Mg IV 02/17/17 19:02 80 mg Q6H MATEO Administration Zolpidem Tartrate Confirm 01/19/17 00:01 Ambien 10 Mg Administered 01/19/17 00:02 Dose 10 mg .ROUTE .STK-MED ONE Intake & Output (Last 24 hours) 01/17/17 01/18/17 01/19/17 01/20/17 11:59 11:59 11:59 11:59 Intake Total 960 Balance 960 Weight 87.362 kg Microbiology Results (Last 24 hours) 01/18/17 16:10 Blood - Pending 01/18/17 16:10 Blood Blood Culture - Pending 01/18/17 16:05 Blood - Pending 01/18/17 16:05 Blood Blood Culture - Pending Laboratory Results (Last 24 hours) 01/19/17 01/19/17 01/19/17 07:30 06:15 06:15 WBC 4.8 RBC 2.76 L Hgb 8.2 L Hct 25.6 L MCV 92.8 MCH 29.7 MCHC 32.0 RDW 20.8 H Plt Count 189 MPV 9.2 Segmented Neutrophils 97 H Band Neutrophils Lymphocytes (Manual) 3 L Monocytes (Manual) Differential Comment NORMAL Platelet Estimate NORMAL VBG pH VBG pCO2 at Pat Temp VBG pO2 at Pat Temp VBG HCO3 VBG O2 Sat (Judy) VBG Base Excess VBG Hemoglobin VBG Carboxyhemoglobin POC Potassium Sodium 141 Potassium 4.2 Chloride 106 Carbon Dioxide 25.8 Anion Gap 13.5 BUN 9 Creatinine 0.79 Estimated GFR > 60 Glucose 276 H Hemoglobin A1c 6.9 H Calcium 7.9 L Total Bilirubin 0.20 AST 11 L ALT 20 Alkaline Phosphatase 127 H NT-Pro-B Natriuret Pep Serum Total Protein 6.1 L Albumin 3.2 L 01/18/17 01/18/17 01/18/17 16:05 16:05 15:56 WBC 4.1 RBC 2.72 L Hgb 8.1 L Hct 25.6 L MCV 94.1 MCH 29.7 MCHC 31.6 L RDW 21.3 H Plt Count 169 MPV 8.4 Segmented Neutrophils 60 Band Neutrophils 11 H Lymphocytes (Manual) 27 Monocytes (Manual) 2 Differential Comment NORMAL Platelet Estimate NORMAL VBG pH 7.39 VBG pCO2 at Pat Temp 44 VBG pO2 at Pat Temp 29 VBG HCO3 26.6 VBG O2 Sat (Judy) 54.0 L VBG Base Excess 1.4 VBG Hemoglobin 8.6 VBG Carboxyhemoglobin 2.0 POC Potassium 4.4 Sodium 142 Potassium 4.2 Chloride 106 Carbon Dioxide 23.5 Anion Gap 16.2 H BUN 9 Creatinine 1.00 Estimated GFR 58 Glucose 179 H Hemoglobin A1c Calcium 8.6 Total Bilirubin 0.30 AST 13 L ALT 19 Alkaline Phosphatase 131 H NT-Pro-B Natriuret Pep 186 H Serum Total Protein 5.7 L Albumin 3.2 L Orders (Last 24 hours) Category Date Time Status Bedrest with BRP/BSC ROUTINE Activity 01/18/17 19:03 Active Accucheck ACHS Care 01/18/17 19:03 Active Admission/Status Order ROUTINE Care 01/18/17 19:03 Active Call Admit Doctor for Orders ON ADMISSION Care 01/18/17 19:03 Active Officer Lieutenant STAT Care 01/18/17 15:57 Completed Code Status Order ROUTINE Care 01/18/17 19:03 Active EKG-ER Only STAT Care 01/18/17 15:56 Completed IV Care Q6H Care 01/18/17 19:03 Active IV Insertion STAT Care 01/18/17 15:56 Completed Isolation, Initiate & Maintain Q12H Care 01/18/17 19:00 Active Telemetry Q4H Care 01/18/17 19:03 Active Weight,Daily 0600 Care 01/18/17 19:03 Active Cardio-Pulmonary Rehab .as ordered Cons 01/19/17 01:10 Active Infection Control Consult ROUTINE Cons 01/19/17 01:32 Active 1800 Calorie ADA Diet 01/19/17 Breakfast Active Nutritional Admission Screen once Diet 01/19/17 01:10 Active CHEST 1 VIEW (PORTABLE) Stat Exams 01/18/17 15:57 Completed CHEST 2 VIEWS (PA AND LAT) Routine Exams 01/19/17 06:00 Completed BLOOD CULTURE Stat Lab 01/18/17 16:10 Received CBC W DIFF AM.LAB Lab 01/19/17 06:15 Completed CBC W DIFF Stat Lab 01/18/17 16:05 Completed CMP AM.LAB Lab 01/19/17 06:15 Completed CMP Stat Lab 01/18/17 16:05 Completed CULTURE,SPUTUM Stat Lab 01/18/17 15:57 Uncollected HEMOGLOBIN A1C Urgent Lab 01/19/17 07:30 Completed Manual Differential NC Routine Lab 01/19/17 06:15 Completed Manual Differential NC Stat Lab 01/18/17 16:05 Completed NT PRO BNP Stat Lab 01/18/17 16:05 Completed VENOUS BLOOD GAS Stat Lab 01/18/17 15:56 Completed Albuterol/Ipratropium 3ml Neb* [DUONEB 0.5-3 MG/3 ml Med 01/18/17 16:18 Discontinued Neb] 3 ml IH .STK-MED ONE Albuterol/Ipratropium 3ml Neb* [DUONEB 0.5-3 MG/3 ml Med 01/18/17 19:03 Active Neb] 3 ml IH Q4HPRN PRN Albuterol/Ipratropium 3ml Neb* [DUONEB 0.5-3 MG/3 ml Med 01/19/17 07:00 Active Neb] 3 ml IH QIDRT Albuterol/Ipratropium 3ml Neb* [DUONEB 0.5-3 MG/3 ml Med 01/18/17 15:56 Discontinued Neb] 3 ml IH STAT ONE Azithromycin 500 mg/250 ml [Zithromax 500 MG/ 250 ML Med 01/19/17 10:00 Discontinued NaCl Premix] 500 mg in 250 ml IV Q24H10 Azithromycin 500 mg/250 ml [Zithromax 500 MG/ 250 ML Med 01/19/17 22:00 Active NaCl Premix] 500 mg in 250 ml IV Q24H22 Ceftriaxone 1 GM/50 ML PREMIX* [ROCEPHIN 1 Gm-D5w 50 ml Med 01/19/17 10:00 Active Bag] 1 g in 50 ml IV Q24H10 Ceftriaxone 1 GM/50 ML PREMIX* [ROCEPHIN 1 Gm-D5w 50 ml Med 01/18/17 17:01 Discontinued Bag] 1 g in 50 ml IV STAT Ceftriaxone 1 GM/50 ML PREMIX* [ROCEPHIN 1 Gm-D5w 50 ml Med 01/18/17 17:20 Discontinued Bag] 1 g in 50 ml IV UD Hydrocodone /APAP 7.5/325 mg [[place] 7.5/325 mg Tab Med 01/19/17 00:14 Discontinued ] 1 tab .ROUTE .STK-MED ONE Hydrocodone /APAP 7.5/325 mg [[place] 7.5/325 mg Tab Med 01/19/17 00:20 Discontinued ] 1 tab PO Q6H PRN Hydrocodone /APAP 7.5/325 mg [[place] 7.5/325 mg Tab Med 01/19/17 06:36 Active ] 1 tab PO Q6H PRN PRN Insulin Aspart [NovoLOG Insulin] Med 01/18/17 19:03 Active See Dose Instructions SQ UD PRN Lorazepam 1 mg [Ativan 1 MG] Med 01/19/17 00:22 Active 1 mg PO BID PRN PRN Methylprednis Sod Succ 125 mg* [solu-MEDROL 125 MG] Med 01/18/17 17:20 Discontinued 125 mg .ROUTE .STK-MED ONE Methylprednis Sod Succ 125 mg* [solu-MEDROL 125 MG] Med 01/18/17 17:00 Discontinued 125 mg IV STAT ONE Methylprednis Sod Succ 125 mg* [solu-MEDROL 125 MG] Med 01/18/17 19:03 Discontinued 80 mg IV Q6H Methylprednis Sod Succ 125 mg* [solu-MEDROL 125 MG] Med 01/19/17 12:00 Active 80 mg IV Q6HT NaCl 0.9% 1000 ml [Sodium Chloride 0.9% 1000 ML] 1,000 Med 01/18/17 19:03 Active ml IV 100 mls/hr Ondansetron ODT 4 MG [Zofran Odt 4 mg] Med 01/19/17 00:21 Active 4 mg PO Q12H PRN PRN Zolpidem Tartrate 10 mg [Ambien 10 MG] Med 01/19/17 00:01 Discontinued 10 mg .ROUTE .STK-MED ONE Zolpidem Tartrate 10 mg [Ambien 10 MG] Med 01/19/17 00:20 Active 10 mg PO HS PRN PRN Oxygen NASAL CANNULA 2 lpm RT 01/18/17 18:53 Inactive Oxygen NASAL CANNULA 2 lpm RT 01/18/17 19:03 Active Pulse Oximetry CONTINUOUS RT 01/18/17 19:03 Active Respiratory Nebulizer PRN RT 01/18/17 20:00 Active Respiratory Nebulizer QID RT 01/19/17 07:00 Active Respiratory Nebulizer STAT RT 01/18/17 15:58 Completed Respiratory Therapy Consult ROUTINE RT 01/18/17 19:[address] Screen per Nursing Assess once Ther 01/19/17 01:10 Active Code(s): J18.9 - PNEUMONIA, UNSPECIFIED ORGANISM
--- NOTE | 2017-01-19 13:16 | PCM.DCORD ---
- Discharge Discharge Date: 01/19/17 Disposition: Home, Self-Care Condition: Stable Prescriptions: New Levofloxacin [Levaquin] 250 mg PO DAILY #7 tablet Continue Pravastatin Sodium 80 mg PO DAILY Metformin HCl 500 mg PO BID Donepezil HCl 10 mg PO DAILY Zolpidem Tartrate 10 mg PO HS Paroxetine HCl 30 mg PO DAILY Levothyroxine Sodium 25 mcg PO DAILY Clopidogrel Bisulfate [Plavix] 75 mg PO DAILY Aspirin 325 mg PO DAILY Amitriptyline HCl 50 mg PO HS Ondansetron [Ondansetron Odt] 4 mg PO Q6HPRN PRN PRN Reason: Nausea Insulin Lispro [Humalog Kwikpen U-100] 0 unit SQ BID PRN MDD 20 PRN Reason: blood sugar Levocetirizine Dihydrochloride [Xyzal] 5 mg PO HS Promethazine HCl 25 mg [Phenergan 25 mg] 25 mg PO Q8H PRN PRN PRN Reason: Nausea Carvedilol 12.5 mg [Coreg 12.5 mg] 12.5 mg PO BID Omeprazole 20 MG [Prilosec 20 mg] 20 mg PO DAILY Clonazepam 0.5 mg [Klonopin 0.5 MG] 0.5 mg PO BID Insulin Glargine,Hum.rec.anlog [Basaglar Kwikpen U-100] 23 unit SQ HS Dexamethasone 4 mg PO UD Non-Formulary Drug [Non-Formulary Item] 15 ml PO QIDPRN PRN PRN Reason: mouth pain Albuterol Sulfate [Proventil Hfa] 6.7 gm IH QIDPRN PRN PRN Reason: wheezing Albuterol 2.5 mg/3 ml Neb [Proventil 2.5 mg/3 ml Neb] 2.5 mg IH QIDPRN PRN PRN Reason: Shortness Of Breath Hydrocodone Bit/Acetaminophen [[place] 5/325Mg] 2 each PO Q4HPRN PRN PRN Reason: Pain Follow up with: TARIK SHAIKH [Primary Care Provider] - 1 Week
[2017-01-19 15:14] VITALS: PULSE 84; O2SAT 94
== END 2017-01-19 15:25 | disposition home or self-care (01) ==
LOC: ED 15:40 → MED SURG 18:58
PROVIDERS: ADMIT General Practice; ATTEND General Practice
DX: C34.91 Malignant neoplasm of unspecified part of right bronchus or lung (principal); C79.89 Secondary malignant neoplasm of other specified sites; J98.01 Acute bronchospasm; J18.9 Pneumonia, unspecified organism; E11.9 Type 2 diabetes mellitus without complications; Z79.4 Long term (current) use of insulin; I10 Essential (primary) hypertension; E78.00 Pure hypercholesterolemia, unspecified; Z79.899 Other long term (current) drug therapy
CPT/HCPCS: 36000; 36415; 71010; 71020; 80053; 82805; 82962; 83036; 83880; 85025; 87040; 93005; 93041; 94640; 94760; 96360; 96361; 96365; 99285; G0378; J0456; J0696; J1642; J2930; A9270-GY

== ENCOUNTER 2017-03-31 11:40 | Emergency (ER) | payer MEDICARE, BC ==
[2017-03-31] MEDS ORDERED: Phenergan 25 MG INJ IM ONE (12:07)
[2017-03-31] MEDS ORDERED: Sodium Chloride 0.9% 1000 ML 1,000 ML IV SCH (12:15)
[2017-03-31] MEDS ORDERED: Sodium Chloride 0.9% 1000 ML 1,000 ML ONE (12:15)
[2017-03-31] MEDS ORDERED: Phenergan 25 MG INJ ONE (12:15)
--- NOTE | 2017-03-31 12:15 | ERPHSYRPT ---
- History of Present Illness Time Seen by Provider: 03/31/17 11:56 Source: patient, family (daughter) Patient Subjective Stated Complaint: PT STATES SHE HAS LUNG CANCER WITH CHEMO. STATES THIS IS HER 2ND ROUND OF CHEMO LAST DOSE WAS 03/25/17. STATES SHE HAS FELT SOB AND WEAK SINCE THEN. STATES SHE IS NAUSEATED AND NOT EATING OR DRINKING DIANA WELL. STATES SHE HAS HAD HEMATURIA IN THE PAST FEW WEEKS AND HAS BEEN ON AN ANTIBIOTIC. Triage Nursing Assessment: PT FLUSHED, WARM, DRY. LUNG SOUNDS CLEAR AND EQUAL. PT CAN SPEAK IN FULL SENTENCES WITHOUT DIFFICULTIES. PT AFEBRILE. Physician History: CC: nausea Hx: 72 y/o patient of Dr Aggarwal oncology, and [employer] Tarik Shaikh. She has lung CA on chemotherapy thru [facility]. Last chemo treatment Thu. Saw office yesterday for a shot. Was on bactrim for UTI but was too nauseated to finish. She has overwhelming nausea. Some vomiting but none today. No pain. No diarrhea. She has MCNAMARA. She tried phenergan pills but could not keep them down. Allergic to compazine. Zofran was not working so she came to ER. Timing/Duration: week(s) (1) Severity: severe Allergies/Adverse Reactions: prochlorperazine [From Compazine] Allergy (Verified 03/31/17 11:54) Rash codeine Adverse Reaction (Verified 03/31/17 11:54) Nausea and Vomiting morphine Adverse Reaction (Verified 03/31/17 11:54) Nausea and Vomiting CONTRAST DYE Allergy (Uncoded 03/31/17 11:54) Difficulty Swallowing Home Medications: Amitriptyline HCl 50 mg PO HS 11/22/16 [History] Aspirin 325 mg PO DAILY 11/22/16 [History] Clopidogrel Bisulfate [Plavix] 75 mg PO DAILY 11/22/16 [History] Donepezil HCl 10 mg PO DAILY 11/22/16 [History] Levothyroxine Sodium 25 mcg PO DAILY 11/22/16 [History] Paroxetine HCl 30 mg PO DAILY 11/22/16 [History] Carvedilol 12.5 mg [Coreg 12.5 mg] 12.5 mg PO BID 01/18/17 [History] Insulin Glargine,Hum.rec.anlog [Gilaaglar Kwikpen U-100] 23 unit SQ HS 01/18/17 [ History] Insulin Lispro [Humalog Kwikpen U-100] 0 unit SQ BID PRN MDD 20 01/18/17 [ History] Levocetirizine Dihydrochloride [Xyzal] 5 mg PO HS 01/18/17 [History] Omeprazole 20 MG [Prilosec 20 mg] 20 mg PO DAILY 01/18/17 [History] Ondansetron [Ondansetron Odt] 4 mg PO Q6HPRN PRN 01/18/17 [History] Promethazine HCl 25 mg [Phenergan 25 mg] 25 mg PO Q8H PRN PRN 01/18/17 [ History] Albuterol 2.5 mg/3 ml Neb [Proventil 2.5 mg/3 ml Neb] 2.5 mg IH QIDPRN PRN 01/19/17 [History] Albuterol Sulfate [Proventil Hfa] 6.7 gm IH QIDPRN PRN 01/19/17 [History] Non-Formulary Drug [Non-Formulary Item] 15 ml PO QIDPRN PRN 01/19/17 [History] Fentanyl 25Mcg Patch [Duragesic 25MCG Patch] 25 mcg TOP Q3D 03/31/17 [ History] Hx Tetanus, Diphtheria Vaccination/Date Given: Yes (UNKNOWN) Hx Influenza Vaccination/Date Given: No Hx Pneumococcal Vaccination/Date Given: No Immunizations Up to Date: Yes - Review of Systems Constitutional: Fatigue, Malaise, Weakness, No Fever, No Chills Eyes: No Symptoms Ears, Nose, & Throat: No Symptoms Respiratory: Dyspnea on Exertion (MCNAMARA), No Cough, No Dyspnea Cardiac: No Chest Pain, No Edema, No Syncope Abdominal/Gastrointestinal: Nausea, Vomiting, No Abdominal Pain, No Diarrhea Genitourinary Symptoms: No Dysuria Skin: No Rash Neurological: No Headache All Other Systems: Reviewed and Negative - Past Medical History Pertinent Past Medical History: Yes Neurological History: No Pertinent History ENT History: No Pertinent History Cardiac History: Angina, Coronary Artery Disease, Myocardial Infarction ([place]) Respiratory History: COPD, Pneumonia Endocrine Medical History: Diabetes Type II Musculoskeletal History: Osteoarthritis GI Medical History: No Pertinent History History: No Pertinent History Psycho-Social History: Anxiety Female Reproductive Disorders: No Pertinent History Other Medical History: DIABETIC,HTN,HIGH CHOLESTEROL,[place],STAGE 3 LUNG CANCER - Past Surgical History Past Surgical History: Yes Neuro Surgical History: No Pertinent History Cardiac: No Pertinent History Respiratory: No Pertinent History Gastrointestinal: Cholecystectomy Genitourinary: No Pertinent History Musculoskeletal: No Pertinent History, Joint Replacement Female Surgical History: Hysterectomy Other Surgical History: PORT PLACEMENT - Social History Smoking Status: Current every day smoker Exposure to second hand smoke: No Drug Use: none Patient Lives Alone: No - Nursing Vital Signs Nursing Vital Signs: Initial Vital Signs Temperature 98.5 F 03/31/17 11:41 Pulse Rate 118 H 03/31/17 11:41 Respiratory Rate 26 H 03/31/17 11:41 Blood Pressure 142/81 03/31/17 11:41 O2 Sat by Pulse Oximetry 100 03/31/17 11:41 Pain Scale Pain Intensity 0 - Physical Exam General Appearance: alert, obese Eye Exam: PERRL/EOMI Ears, Nose, Throat Exam: normal ENT inspection, dry mucous membranes Neck Exam: normal inspection, non-tender, supple Respiratory Exam: lungs clear, diminished breath sounds Cardiovascular Exam: regular rate/rhythm Gastrointestinal/Abdomen Exam: soft, No tenderness, No distention Back Exam: normal inspection Extremity Exam: normal inspection, normal range of motion, No calf tenderness, No pedal edema Neurologic Exam: alert, oriented x 3, cooperative, sensation nml, No motor deficits Skin Exam: warm, dry, pale, No rash SpO2 Interpretation: normal SpO2: 100 Oxygen Delivery: Room Air - Course Nursing assessment & vital signs reviewed: Yes - Radiology Exams cxr X-ray Interpretation: Teleradiologist Report, Negative Ordered Tests: Active Orders 24 hr Category Date Time Status Cath for Specimen-Straight STAT Care 03/31/17 12:07 Active EKG-ER Only STAT Care 03/31/17 12:07 Active IV Insertion STAT Care 03/31/17 12:07 Active CHEST 1 VIEW (PORTABLE) Stat Exams 03/31/17 12:07 Completed BLOOD CULTURE Stat Lab 03/31/17 12:37 Received CBC W DIFF Stat Lab 03/31/17 12:10 Completed CMP Stat Lab 03/31/17 12:10 Completed Lactic Acid Stat Lab 03/31/17 12:10 Results TROPONIN Q3H Lab 03/31/17 12:15 Completed TROPONIN Q3H Lab 03/31/17 15:15 Ordered TROPONIN Q3H Lab 03/31/17 18:15 Ordered TROPONIN Q3H Lab 03/31/17 21:15 Ordered TROPONIN Q3H Lab 04/01/17 00:15 Ordered UA W/ MICROSCOPIC Stat Lab 03/31/17 12:30 Completed Medication Summary Generic Name Dose Route Start Last Admin Trade Name Freq PRN Reason Stop Dose Admin Sodium Chloride 1,000 mls @ 250 mls/hr 03/31/17 12:15 03/31/17 12:22 Sodium Chloride 0.9% 1000 Ml IV 04/30/17 12:14 250 mls/hr .Q4H MATEO Administration Discontinued Medications Generic Name Dose Route Start Last Admin Trade Name Freq PRN Reason Stop Dose Admin Ondansetron HCl 4 mg 03/31/17 12:59 03/31/17 13:18 Zofran 4 Mg/2 Ml Vial IV 03/31/17 13:00 4 mg STAT ONE Administration Ondansetron HCl Confirm 03/31/17 13:13 Zofran 4 Mg/2 Ml Vial Administered 03/31/17 13:14 Dose 4 mg .ROUTE .STK-MED ONE Promethazine HCl 25 mg 03/31/17 12:07 03/31/17 12:21 Phenergan 25 Mg Inj IM 03/31/17 12:08 25 mg STAT ONE Administration Promethazine HCl Confirm 03/31/17 12:15 Phenergan 25 Mg Inj Administered 03/31/17 12:16 Dose 25 mg .ROUTE .STK-MED ONE Lab/Rad Data: Laboratory Result Diagrams 03/31/17 12:10 03/31/17 12:10 Laboratory Results 03/31/17 03/31/17 03/31/17 Range/Units 12:30 12:15 12:10 WBC (4.0-10.5) K/mm3 RBC (4.1-5.4) M/mm3 Hgb (12.0-16.0) gm/dl Hct (35-47) % MCV (78-100) fl MCH (26-32) pg MCHC (32-36) g/dl RDW (11.5-14.0) % Plt Count (150-450) K/mm3 MPV (6-9.5) fl Gran % (36.0-66.0) % Lymphocytes % (24.0-44.0) % Monocytes % (0.0-12.0) % Eosinophils % (0.00-5.0) % Basophils % (0.0-0.4) % Basophils # (0-0.4) Sodium 136 (136-145) mEq/L Potassium 3.8 (3.5-5.1) mEq/L Chloride 101 (98-107) mEq/L Carbon Dioxide 24.9 (21-32) mEq/L Anion Gap 14.3 (5-15) MEQ/L BUN 11 (9-20) mg/dL Creatinine 0.89 (0.55-1.30) mg/dl Estimated GFR > 60 ML/MIN Glucose 215 H (70-110) MG/DL Lactic Acid (0.4-2.0) Calcium 8.9 (8.5-10.1) mg/dL Total Bilirubin 0.30 (0.2-1.0) mg/dL AST 19 (15-37) U/L ALT 19 (12-78) U/L Alkaline Phosphatase 107 (46-116) U/L Troponin I < 0.017 (0.000-0.056) ng/ml Serum Total Protein 6.4 (6.4-8.2) gm/dL Albumin 3.5 (3.4-5.0) g/dL Ur Collection Type CATH Urine Color YELLOW (YELLOW) Urine Appearance CLEAR (CLEAR) Urine pH 5.0 (5-6) Ur Specific [place] 1.020 (1.005-1.025) Urine Protein TRACE (Negative) Urine Ketones NEGATIVE (NEGATIVE) Urine Blood TRACE NON-HEM (0-5) Brandon/ul Urine Nitrite NEGATIVE (NEGATIVE) Urine Bilirubin NEGATIVE (NEGATIVE) Urine Urobilinogen NORMAL (0-1) mg/dL Ur Leukocyte Esterase NEGATIVE (NEGATIVE) Urine Microscopic RBC 0-2 (0-2) /HPF Urine Microscopic WBC 0-2 (0-5) /HPF Ur Epithelial Cells RARE (FEW) /HPF Urine Bacteria RARE (NEGATIVE) /HPF Urine Culture Reflexed NO (NO) Urine Glucose 50 (NEGATIVE) mg/dL Specimen Received 03-31-17 [id number] 03/31/17 03/31/17 Range/Units 12:10 12:10 WBC 2.3 L (4.0-10.5) K/mm3 RBC 3.36 L (4.1-5.4) M/mm3 Hgb 10.1 L (12.0-16.0) gm/dl Hct 30.5 L (35-47) % MCV 90.8 (78-100) fl MCH 30.0 (26-32) pg MCHC 33.1 (32-36) g/dl RDW 16.2 H (11.5-14.0) % Plt Count 217 (150-450) K/mm3 MPV 8.1 (6-9.5) fl Gran % 51.5 (36.0-66.0) % Lymphocytes % 41.9 (24.0-44.0) % Monocytes % 1.8 (0.0-12.0) % Eosinophils % 4.8 (0.00-5.0) % Basophils % 0.0 (0.0-0.4) % Basophils # 0 (0-0.4) Sodium (136-145) mEq/L Potassium (3.5-5.1) mEq/L Chloride (98-107) mEq/L Carbon Dioxide (21-32) mEq/L Anion Gap (5-15) MEQ/L BUN (9-20) mg/dL Creatinine (0.55-1.30) mg/dl Estimated GFR ML/MIN Glucose (70-110) MG/DL Lactic Acid 2.1 H (0.4-2.0) Calcium (8.5-10.1) mg/dL Total Bilirubin (0.2-1.0) mg/dL AST (15-37) U/L ALT (12-78) U/L Alkaline Phosphatase (46-116) U/L Troponin I (0.000-0.056) ng/ml Serum Total Protein (6.4-8.2) gm/dL Albumin (3.4-5.0) g/dL Ur Collection Type Urine Color (YELLOW) Urine Appearance (CLEAR) Urine pH (5-6) Ur Specific [place] (1.005-1.025) Urine Protein (Negative) Urine Ketones (NEGATIVE) Urine Blood (0-5) Brandon/ul Urine Nitrite (NEGATIVE) Urine Bilirubin (NEGATIVE) Urine Urobilinogen (0-1) mg/dL Ur Leukocyte Esterase (NEGATIVE) Urine Microscopic RBC (0-2) /HPF Urine Microscopic WBC (0-5) /HPF Ur Epithelial Cells (FEW) /HPF Urine Bacteria (NEGATIVE) /HPF Urine Culture Reflexed (NO) Urine Glucose (NEGATIVE) mg/dL Specimen Received - Progress Progress Note: 03/31/17 13:41 The patient feels better after IVF and zofran and phergan. Reviewed labs. She wants to go home and will try phenergan supp. Message given to Dr Owens and labs faxed. Counseled pt/family regarding: lab results, diagnosis, need for follow-up, rad results - Departure Time of Disposition: 13:45 Departure Disposition: Home Clinical Impression: post chemotherapy nausea, Lung cancer Condition: Stable Critical Care Time: No Referrals: TARIK SHAIKH [Primary Care Provider] - BOBBY AGGARWAL [COURTESY STAFF] - Instructions: Nausea -- Adult Additional Instructions: Sip fluids. Small bland diet. Rx phenergan supp for nausea. Call Dr Lawton for follow up. Return for fever, recurrent vomiting, concerns. Prescriptions: Promethazine HCl 25 mg Supp [Phenergan 25 mg Supp] 25 mg [place] Q6H PRN PRN # 10 supp.rect PRN Reason: Nausea/Vomiting
[2017-03-31 12:16] LABS: Eosinophil % 4.8 % (0.00-5.0); Granulocytes % 51.5 % (36.0-66.0); Lymphocytes % 41.9 % (24.0-44.0); Mean Cell Volume 90.8 fl (78-100); Mean Platelet Volume 8.1 fl (6-9.5); Monocytes % 1.8 % (0.0-12.0); Platelet Count 217 K/mm3 (150-450); Red Blood Count 3.36 M/mm3 (4.1-5.4); Red Cell Distribution Width 16.2 % (11.5-14.0); White Blood Count 2.3 K/mm3 (4.0-10.5)
--- NOTE | 2017-03-31 12:39 | XRAY ---
Indication: Short of breath and nausea. Current therapy for lung cancer. Comparison: January 19, 2017. Portable chest remains clear again with a few incidental calcified granulomas. Heart is not enlarged with stable right-sided Port-A-Cath. No new/acute findings. Impression: Nonacute chest.
[2017-03-31 12:48] LABS: ALBUMIN 3.5 g/dL (3.4-5.0); ALKALINE PHOSPHATASE 107 U/L (46-116); ANION GAP 14.3 MEQ/L (5-15); BLOOD UREA NITROGEN 11 mg/dL (9-20); CHLORIDE 101 mEq/L (98-107); Carbon Dioxide 24.9 mEq/L (21-32); Glucose 215 MG/DL (70-110); Potassium 3.8 mEq/L (3.5-5.1); SGOT/AST 19 U/L (15-37); SGPT/ALT 19 U/L (12-78); SODIUM 136 mEq/L (136-145); Total Protein 6.4 gm/dL (6.4-8.2)
[2017-03-31 12:55] LABS: Lactic Acid 2.1 (0.4-2.0)
[2017-03-31 12:57] LABS: ADD URINE CULTURE? NO (NO); Bacteria RARE /HPF (NEGATIVE); Bilirubin NEGATIVE (NEGATIVE); Blood TRACE NON-HEM Ery/ul (0-5); COMPLETE URINE MICROSCOPIC? YES; Collection Type CATH; Epithelial Cells RARE /HPF (FEW); Glucose 50 mg/dL (NEGATIVE); Leukocyte Esterase NEGATIVE (NEGATIVE); WBC 0-2 /HPF (0-5)
[2017-03-31] MEDS ORDERED: Zofran 4 MG/2 ML VIAL IV ONE (12:59)
[2017-03-31] MEDS ORDERED: Zofran 4 MG/2 ML VIAL ONE (13:13)
[2017-03-31 13:47] VITALS: O2SAT 100
[2017-03-31 13:48] VITALS: BP 130/78; PULSE 102
== END 2017-03-31 14:11 | disposition home or self-care (01) ==
LOC: ED 11:40
DX: R11.0 Nausea (principal); T45.1X5A Adverse effect of antineoplastic and immunosuppressive drugs, initial encounter; C34.90 Malignant neoplasm of unspecified part of unspecified bronchus or lung; Z79.899 Other long term (current) drug therapy; Z79.4 Long term (current) use of insulin
CPT/HCPCS: 96372; 96374; 36000; 93005; 87040; 81000; 36415; 85025; 80053; 84484; 71010; 83605; P9612; 96360; 99284; J1642; J2405; J2550

== ENCOUNTER 2017-04-15 10:21 | Emergency (ER) | payer MEDICARE, BC ==
[2017-04-15] MEDS ORDERED: NORCO 7.5/325 MG TAB PO ONE (10:40)
--- NOTE | 2017-04-15 10:43 | ERPHSYRPT ---
- History of Present Illness Time Seen by Provider: 04/15/17 10:41 Source: patient Exam Limitations: no limitations Physician History: mild to mod sharp and ache pain of the right chest wall for one week w/ vesicular rash, no fever, no drainage, also pain in the right eye Allergies/Adverse Reactions: prochlorperazine [From Compazine] Allergy (Verified 03/31/17 11:54) Rash codeine Adverse Reaction (Verified 03/31/17 11:54) Nausea and Vomiting morphine Adverse Reaction (Verified 03/31/17 11:54) Nausea and Vomiting CONTRAST DYE Allergy (Uncoded 03/31/17 11:54) Difficulty Swallowing Home Medications: Amitriptyline HCl 50 mg PO HS 11/22/16 [History] Aspirin 325 mg PO DAILY 11/22/16 [History] Clopidogrel Bisulfate [Plavix] 75 mg PO DAILY 11/22/16 [History] Donepezil HCl 10 mg PO DAILY 11/22/16 [History] Levothyroxine Sodium 25 mcg PO DAILY 11/22/16 [History] Paroxetine HCl 30 mg PO DAILY 11/22/16 [History] Carvedilol 12.5 mg [Coreg 12.5 mg] 12.5 mg PO BID 01/18/17 [History] Insulin Glargine,Hum.rec.anlog [Basaglar Kwikpen U-100] 23 unit SQ HS 01/18/17 [ History] Insulin Lispro [Humalog Kwikpen U-100] 0 unit SQ BID PRN MDD 20 01/18/17 [ History] Levocetirizine Dihydrochloride [Xyzal] 5 mg PO HS 01/18/17 [History] Omeprazole 20 MG [Prilosec 20 mg] 20 mg PO DAILY 01/18/17 [History] Ondansetron [Ondansetron Odt] 4 mg PO Q6HPRN PRN 01/18/17 [History] Promethazine HCl 25 mg [Phenergan 25 mg] 25 mg PO Q8H PRN PRN 01/18/17 [ History] Albuterol 2.5 mg/3 ml Neb [Proventil 2.5 mg/3 ml Neb] 2.5 mg IH QIDPRN PRN 01/19/17 [History] Albuterol Sulfate [Proventil Hfa] 6.7 gm IH QIDPRN PRN 01/19/17 [History] Non-Formulary Drug [Non-Formulary Item] 15 ml PO QIDPRN PRN 01/19/17 [History] Fentanyl 25Mcg Patch [Duragesic 25MCG Patch] 25 mcg TOP Q3D 03/31/17 [ History] Hx Tetanus, Diphtheria Vaccination/Date Given: Yes (UNKNOWN) Hx Influenza Vaccination/Date Given: No Hx Pneumococcal Vaccination/Date Given: No - Review of Systems Constitutional: No Fever Eyes: Eye Pain Ears, Nose, & Throat: No Symptoms Respiratory: No Symptoms Cardiac: No Symptoms Abdominal/Gastrointestinal: No Symptoms Skin: Rash Neurological: No Symptoms Psychological: No Symptoms - Past Medical History Pertinent Past Medical History: Yes Neurological History: No Pertinent History ENT History: No Pertinent History Cardiac History: Angina, Coronary Artery Disease, Myocardial Infarction ([place]) Respiratory History: COPD, Pneumonia Endocrine Medical History: Diabetes Type II Musculoskeletal History: Osteoarthritis GI Medical History: No Pertinent History History: No Pertinent History Psycho-Social History: Anxiety Female Reproductive Disorders: No Pertinent History Other Medical History: DIABETIC,HTN,HIGH CHOLESTEROL,[place],STAGE 3 LUNG CANCER - Past Surgical History Past Surgical History: Yes Neuro Surgical History: No Pertinent History Cardiac: No Pertinent History Respiratory: No Pertinent History Gastrointestinal: Cholecystectomy Genitourinary: No Pertinent History Musculoskeletal: No Pertinent History, Joint Replacement Female Surgical History: Hysterectomy Other Surgical History: PORT PLACEMENT - Social History Smoking Status: Current every day smoker Exposure to second hand smoke: No Drug Use: none Patient Lives Alone: No - Nursing Vital Signs Nursing Vital Signs: Initial Vital Signs Temperature 97.9 F 04/15/17 10:30 Pulse Rate 89 04/15/17 10:30 Respiratory Rate 16 04/15/17 10:30 Blood Pressure 134/72 04/15/17 10:30 O2 Sat by Pulse Oximetry 98 04/15/17 10:30 Pain Scale Pain Intensity 8 - Physical Exam General Appearance: no apparent distress Eye Exam: PERRL/EOMI, eyes nml inspection, No scleral icterus, No pale conjunctivae, No photophobia Ears, Nose, Throat Exam: normal ENT inspection, TM abnormal (L) Respiratory Exam: normal breath sounds Cardiovascular Exam: regular rate/rhythm Gastrointestinal/Abdomen Exam: soft Extremity Exam: normal inspection Neurologic Exam: alert, oriented x 3, cooperative Skin Exam: other (vesicular dermatomic rash lateral right chest wall ) - Course Nursing assessment & vital signs reviewed: Yes Ordered Tests: Medication Summary Discontinued Medications Generic Name Dose Route Start Last Admin Trade Name [place] PRN Reason Stop Dose Admin Hydrocodone Bitart/Acetaminophen 1 tab 04/15/17 10:40 04/15/17 11:01 [place] 7.5/325 Mg Tab PO 04/15/17 10:41 1 tab STAT ONE Administration Acyclovir 800 mg 04/15/17 11:00 04/15/17 11:01 Zovirax 800 Mg PO 04/15/17 11:01 800 mg 5XD MATEO Administration - Progress Progress: improved Progress Note: 04/15/17 11:[address] Rouse today at 1pm as he appointed you norco warnings given acyclovir d/w pt potential loss of vision Discussed with .: Other (Dr Rouse) Counseled pt/family regarding: diagnosis, need for follow-up - Departure Time of Disposition: 11:12 Departure Disposition: Home Clinical Impression: Shingles Qualifiers: Herpes zoster complications: unspecified herpes zoster complication Qualified Code(s): B02.8 - Zoster with other complications Condition: Stable Critical Care Time: No Referrals: TARIK SHAIKH [Primary Care Provider] - Instructions: Shingles Additional Instructions: see Dr Rouse today at 1pm norco warnings given acyclovir return if worse
[2017-04-15 10:44] VITALS: BP 134/72; PULSE 89; O2SAT 98
[2017-04-15] MEDS ORDERED: ZOVIRAX 800 MG PO SCH (11:00)
== END 2017-04-15 11:48 | disposition home or self-care (01) ==
LOC: ED 10:21
DX: B02.8 Zoster with other complications (principal); Z79.899 Other long term (current) drug therapy; Z79.4 Long term (current) use of insulin; I25.10 Atherosclerotic heart disease of native coronary artery without angina pectoris; I25.2 Old myocardial infarction; E11.9 Type 2 diabetes mellitus without complications; J44.9 Chronic obstructive pulmonary disease, unspecified; E78.00 Pure hypercholesterolemia, unspecified; Z85.118 Personal history of other malignant neoplasm of bronchus and lung
CPT/HCPCS: 99283; A9270-GY

== ENCOUNTER 2017-07-04 14:41 | Emergency (ER) | payer MEDICARE, BC ==
[2017-07-04] MEDS ORDERED: Sodium Chloride 0.9% 1000 ML 1,000 ML IV STA (15:17)
[2017-07-04] MEDS ORDERED: Zofran 4 MG/2 ML VIAL IV ONE (15:17)
--- NOTE | 2017-07-04 15:17 | ERPHSYRPT ---
- History of Present Illness Time Seen by Provider: 07/04/17 14:58 Source: patient, family Exam Limitations: no limitations Physician History: The patient is a 72-year-old female with her daughter complaining of feeling short of breath while she was out eating at a [place] restaurant. She got up to use the bathroom and became nauseated and vomited. She has a significant past medical history of lung cancer that is resistant to chemotherapy with metastases to the bone. She had a chest CT done on Thursday at [facility] and was given bad news about the progression of the cancer. She is in the process of deciding to try a very vigorous and strong chemotherapy or be placed on hospice. The past medical history is significant for lung cancer with metastases, hypothyroidism, high blood pressure, diabetes, and depression. Timing/Duration: today Activities at Onset: none Severity of Dyspnea-Max: mild Severity of Dyspnea-Current: mild Possible Cause: frequent episodes Modifying Factors: Improves With: oxygen Allergies/Adverse Reactions: prochlorperazine [From Compazine] Allergy (Verified 07/04/17 14:51) Rash codeine Adverse Reaction (Verified 07/04/17 14:51) Nausea and Vomiting morphine Adverse Reaction (Verified 07/04/17 14:51) Nausea and Vomiting CONTRAST DYE Allergy (Uncoded 03/31/17 11:54) Difficulty Swallowing Home Medications: Amitriptyline HCl 50 mg PO HS 11/22/16 [History] Aspirin 325 mg PO DAILY 11/22/16 [History] Clopidogrel Bisulfate [Plavix] 75 mg PO DAILY 11/22/16 [History] Donepezil HCl 10 mg PO DAILY 11/22/16 [History] Levothyroxine Sodium 25 mcg PO DAILY 11/22/16 [History] Carvedilol 12.5 mg [Coreg 12.5 mg] 12.5 mg PO BID 01/18/17 [History] Levocetirizine Dihydrochloride [Xyzal] 5 mg PO HS 01/18/17 [History] Omeprazole 20 MG [Prilosec 20 mg] 20 mg PO DAILY 01/18/17 [History] Ondansetron [Ondansetron Odt] 4 mg PO Q6HPRN PRN 01/18/17 [History] Albuterol 2.5 mg/3 ml Neb [Proventil 2.5 mg/3 ml Neb] 2.5 mg IH QIDPRN PRN 01/19/17 [History] Albuterol Sulfate [Proventil Hfa] 6.7 gm IH QIDPRN PRN 01/19/17 [History] Fentanyl 25Mcg Patch [Duragesic 25MCG Patch] 75 mcg TOP Q3D 03/31/17 [ History] Hx Tetanus, Diphtheria Vaccination/Date Given: Yes (UNKNOWN) Hx Influenza Vaccination/Date Given: No Hx Pneumococcal Vaccination/Date Given: No - Review of Systems Constitutional: No Fever, No Chills Eyes: No Symptoms Ears, Nose, & Throat: No Symptoms Respiratory: Dyspnea, Dyspnea on Exertion (MCNAMARA) Cardiac: No Chest Pain, No Edema, No Syncope Abdominal/Gastrointestinal: No Abdominal Pain, No Nausea, No Vomiting, No Diarrhea Genitourinary Symptoms: No Dysuria Musculoskeletal: No Back Pain, No Neck Pain Skin: No Rash Neurological: No Dizziness, No Focal Weakness, No Sensory Changes Psychological: No Symptoms Endocrine: No Symptoms Hematologic/Lymphatic: No Symptoms Immunological/Allergic: No Symptoms All Other Systems: Reviewed and Negative - Past Medical History Pertinent Past Medical History: Yes Neurological History: No Pertinent History ENT History: No Pertinent History Cardiac History: Angina, Coronary Artery Disease, Myocardial Infarction (OK) Respiratory History: COPD, Pneumonia Endocrine Medical History: Diabetes Type II Musculoskeletal History: Osteoarthritis GI Medical History: No Pertinent History History: No Pertinent History Psycho-Social History: Anxiety Female Reproductive Disorders: No Pertinent History Other Medical History: DIABETIC,HTN,HIGH CHOLESTEROL,OK,STAGE 3 LUNG CANCER - Past Surgical History Past Surgical History: Yes Neuro Surgical History: No Pertinent History Cardiac: No Pertinent History Respiratory: No Pertinent History Gastrointestinal: Cholecystectomy Genitourinary: No Pertinent History Musculoskeletal: No Pertinent History, Joint Replacement Female Surgical History: Hysterectomy Other Surgical History: PORT PLACEMENT - Social History Smoking Status: Current every day smoker Exposure to second hand smoke: No Drug Use: none Patient Lives Alone: No - Nursing Vital Signs Nursing Vital Signs: Initial Vital Signs Temperature 97.9 F 07/04/17 14:43 Pulse Rate 90 07/04/17 14:43 Respiratory Rate 18 07/04/17 14:43 Blood Pressure 104/82 07/04/17 14:43 O2 Sat by Pulse Oximetry 100 07/04/17 14:43 Pain Scale Pain Intensity 4 - Physical Exam General Appearance: mild distress, anxiety Eye Exam: PERRL/EOMI Neck Exam: normal inspection, supple Respiratory Exam: rhonchi (right greater than left) Cardiovascular/Chest Exam: normal heart sounds, regular rate/rhythm Abdominal/Gastrointestinal Exam: soft, No tenderness, No distention, No mass Rectal Exam: not done Extremity Exam: non-tender, normal range of motion, normal inspection, no calf tenderness, no pedal edema Neurologic Exam: alert, oriented x 3, cooperative, vacation guide II-XII nml as tested, sensation nml, No motor deficits Skin Exam: pale SpO2 Interpretation: normal Ordered Tests: Active Orders 24 hr Category Date Time Status IV Insertion STAT Care 07/04/17 15:17 Active Oxygen-ED Only NASAL CANNULA 2 lpm Care 07/04/17 15:18 Active Pulse Oximetry (ED) STAT Care 07/04/17 15:18 Active CBC W DIFF Stat Lab 07/04/17 15:25 Completed CMP Stat Lab 07/04/17 15:25 Completed Lactic Acid Stat Lab 07/04/17 15:24 Completed TROPONIN Q3H Lab 07/04/17 15:25 Completed TROPONIN Q3H Lab 07/04/17 18:30 Ordered TROPONIN Q3H Lab 07/04/17 21:30 Ordered TROPONIN Q3H Lab 07/05/17 00:30 Ordered TROPONIN Q3H Lab 07/05/17 03:30 Ordered Medication Summary Discontinued Medications Generic Name Dose Route Start Last Admin Trade Name Freq PRN Reason Stop Dose Admin Sodium Chloride 1,000 mls @ 999 mls/hr 07/04/17 15:17 07/04/17 15:26 Sodium Chloride 0.9% 1000 Ml IV 07/04/17 16:17 999 mls/hr .Q1H1M STA Administration Sodium Chloride Confirm 07/04/17 15:25 Sodium Chloride 0.9% 1000 Ml Administered 07/04/17 15:26 Dose 1,000 mls @ ud .ROUTE .STK-MED ONE Ondansetron HCl 4 mg 07/04/17 15:17 07/04/17 15:26 Zofran 4 Mg/2 Ml Vial IV 07/04/17 15:18 4 mg STAT ONE Administration Ondansetron HCl Confirm 07/04/17 15:25 Zofran 4 Mg/2 Ml Vial Administered 07/04/17 15:26 Dose 4 mg .ROUTE .STK-MED ONE Lab/Rad Data: Laboratory Result Diagrams 07/04/17 15:25 07/04/17 15:25 Laboratory Results 07/04/17 07/04/17 07/04/17 Range/Units 15:25 15:25 15:25 WBC 4.0 (4.0-10.5) K/mm3 RBC 3.14 L (4.1-5.4) M/mm3 Hgb 9.2 L (12.0-16.0) gm/dl Hct 28.6 L (35-47) % MCV 91.1 (78-100) fl MCH 29.2 (26-32) pg MCHC 32.2 (32-36) g/dl RDW 16.1 H (11.5-14.0) % Plt Count 229 (150-450) K/mm3 MPV 8.8 (6-9.5) fl Gran % 69.5 H (36.0-66.0) % Lymphocytes % 14.9 L (24.0-44.0) % Monocytes % 12.4 H (0.0-12.0) % Eosinophils % 2.5 (0.00-5.0) % Basophils % 0.7 (0.0-0.4) % Basophils # 0.03 (0-0.4) Sodium 143 (136-145) mEq/L Potassium 3.8 (3.5-5.1) mEq/L Chloride 107 (98-107) mEq/L Carbon Dioxide 24.6 (21-32) mEq/L Anion Gap 14.7 (5-15) MEQ/L BUN 6 L (9-20) mg/dL Creatinine 0.69 (0.55-1.30) mg/dl Estimated GFR > 60 ML/MIN Glucose 171 H (70-110) MG/DL Lactic Acid (0.4-2.0) Calcium 7.8 L (8.5-10.1) mg/dL Total Bilirubin 0.40 (0.2-1.0) mg/dL AST 40 H (15-37) U/L ALT 23 (12-78) U/L Alkaline Phosphatase 141 H (46-116) U/L Troponin I < 0.017 (0.000-0.056) ng/ml Serum Total Protein 4.9 L (6.4-8.2) gm/dL Albumin 2.1 L (3.4-5.0) g/dL 07/04/17 Range/Units 15:24 WBC (4.0-10.5) K/mm3 RBC (4.1-5.4) M/mm3 Hgb (12.0-16.0) gm/dl Hct (35-47) % MCV (78-100) fl MCH (26-32) pg MCHC (32-36) g/dl RDW (11.5-14.0) % Plt Count (150-450) K/mm3 MPV (6-9.5) fl Gran % (36.0-66.0) % Lymphocytes % (24.0-44.0) % Monocytes % (0.0-12.0) % Eosinophils % (0.00-5.0) % Basophils % (0.0-0.4) % Basophils # (0-0.4) Sodium (136-145) mEq/L Potassium (3.5-5.1) mEq/L Chloride (98-107) mEq/L Carbon Dioxide (21-32) mEq/L Anion Gap (5-15) MEQ/L BUN (9-20) mg/dL Creatinine (0.55-1.30) mg/dl Estimated GFR ML/MIN Glucose (70-110) MG/DL Lactic Acid 0.8 (0.4-2.0) Calcium (8.5-10.1) mg/dL Total Bilirubin (0.2-1.0) mg/dL AST (15-37) U/L ALT (12-78) U/L Alkaline Phosphatase (46-116) U/L Troponin I (0.000-0.056) ng/ml Serum Total Protein (6.4-8.2) gm/dL Albumin (3.4-5.0) g/dL - Progress Progress: improved Air Movement: good (downgoing him during her local) Counseled pt/family regarding: lab results, diagnosis (no) - Departure Time of Disposition: 17:54 Departure Disposition: Transfer (Transfer to [facility] per hospitalist Dr Blanton) Clinical Impression: Dyspnea, Nausea and vomiting, Lung cancer Condition: Stable Critical Care Time: No Referrals: TARIK SHAIKH [Primary Care Provider] -
[2017-07-04] MEDS ORDERED: Zofran 4 MG/2 ML VIAL ONE (15:25)
[2017-07-04] MEDS ORDERED: Sodium Chloride 0.9% 1000 ML 1,000 ML ONE (15:25)
[2017-07-04 15:27] LABS: BASOPHIL % 0.7 % (0.0-0.4); Basophil (Absolute #) 0.03 (0-0.4); Eosinophil % 2.5 % (0.00-5.0); Granulocytes % 69.5 % (36.0-66.0); Hematocrit 28.6 % (35-47); Hemoglobin 9.2 gm/dl (12.0-16.0); Lymphocytes % 14.9 % (24.0-44.0); Mean Cell Volume 91.1 fl (78-100); Mean Corpuscular Hgb Concent. 32.2 g/dl (32-36); Mean Platelet Volume 8.8 fl (6-9.5); Monocytes % 12.4 % (0.0-12.0); Platelet Count 229 K/mm3 (150-450); Red Blood Count 3.14 M/mm3 (4.1-5.4); Red Cell Distribution Width 16.1 % (11.5-14.0)
[2017-07-04 15:35] LABS: Mean Corpuscular Hemoglobin 29.2 pg (26-32)
[2017-07-04 15:56] LABS: ALBUMIN 2.1 g/dL (3.4-5.0); ALKALINE PHOSPHATASE 141 U/L (46-116); ANION GAP 14.7 MEQ/L (5-15); BLOOD UREA NITROGEN 6 mg/dL (9-20); CHLORIDE 107 mEq/L (98-107); Calcium 7.8 mg/dL (8.5-10.1); Carbon Dioxide 24.6 mEq/L (21-32); Creatinine 1 0.69 mg/dl (0.55-1.30); EST GLOMERULAR FILTRATION RATE > 60 ML/MIN; Glucose 171 MG/DL (70-110); Potassium 3.8 mEq/L (3.5-5.1); SGOT/AST 40 U/L (15-37); SGPT/ALT 23 U/L (12-78); SODIUM 143 mEq/L (136-145); Total Protein 4.9 gm/dL (6.4-8.2)
[2017-07-04 18:32] VITALS: BP 140/84; PULSE 86; O2SAT 97
== END 2017-07-04 19:06 | disposition short-term general hospital (02) ==
LOC: ED 14:41
DX: R06.02 Shortness of breath (principal); R11.2 Nausea with vomiting, unspecified; Z79.899 Other long term (current) drug therapy; C34.90 Malignant neoplasm of unspecified part of unspecified bronchus or lung; C79.51 Secondary malignant neoplasm of bone
CPT/HCPCS: 36000; 36415; 80053; 83605; 84484; 85025; 96360; 96374; 99285; J2405